=== PATIENT | female | born 1985 | race Caucasian/White ===

== ENCOUNTER → 2019-02-16 17:10 | Outpatient (CLI) | payer BC, SELFPAY ==
[2019-02-16 13:59] VITALS: BMI 41.2
[2019-02-16 20:37] LABS: Chlamydia Trachomatis by PCR Negative (Negative); Neisserai gonorrhoeae by PCR Negative (Negative); Probe Check PASS; Sample Adequacy Control PASS; Specimen Processing Control PASS
== END ==
PROVIDERS: Referring Provider Nurse Practitioner Women's Health; Visit Provider Nurse Practitioner Women's Health
DX: Z34.90 Encounter for supervision of normal pregnancy, unspecified, unspecified trimester (principal)
CPT/HCPCS: 87086; 87088; 87491; 87591

== ENCOUNTER → 2019-02-16 | Outpatient (CLI) | payer BC, SELFPAY ==
[2019-02-16 13:59] VITALS: BMI 41.2
== END | disposition home or self-care (01) ==
LOC: LABSPEC 17:09
PROVIDERS: Referring Provider Nurse Practitioner Women's Health; Visit Provider Nurse Practitioner Women's Health
DX: Z12.4 Encounter for screening for malignant neoplasm of cervix (principal)
CPT/HCPCS: 87624; 88175; G0145

== ENCOUNTER → 2019-02-25 | Outpatient (CLI) | payer BC, SELFPAY ==
[2019-02-16 13:59] VITALS: BMI 41.2
[2019-02-25 17:30] LABS: Absolute Lymphocyte Count 1.95 X10^3/ul (0.83-4.51); Absolute Neutrophil Count 9.2 X10^3/uL (2.0-7.7); Basophil# 0.02 X10^3/uL; Basophil% 0.2 % (0-1); Eosinophil# 0.11 X10^3/uL; Eosinophils% 0.9 % (0-5); Hematocrit 38.7 % (37-47); Hemoglobin 12.8 g/dl (12.0-15.0); Lymphocyte # 1.95 X10^3/ul (4.0); Lymphocyte % 16.1 % (19-41); Mean Corp Hgb Conc 33.1 g/gl (32-36); Mean Corpuscular Hgb 29.7 pg (27.0-32.0); Mean Corpuscular Volume 89.8 fL (81-99); Mean Platelet Vol. 11.6 fl (6.2-12.0); Monocyte# 0.75 X10^3/uL; Monocyte% 6.2 % (0-10); Neutrophil # 9.22 X10^3/uL (2.7-7.7); Neutrophil % 76.3 % (47-70); Platelet Count 263 K/mm3 (150-450); RBC Distribution Width CV 13.4 % (11.6-14.6); RBC Distribution Width SD 43.6 fl (35.1-43.9); Red Blood Count 4.31 M/mm3 (4.2-5.4); White Blood Count 12.1 K/mm3 (4.4-11.0)
[2019-02-25 17:32] LABS: POSITIVE COUNT NO; POSITIVE DIFFERENTIAL NO; POSITIVE MORPHOLOGY NO
[2019-02-25 17:57] LABS: Glucose Challenge Gest 1H 50g 172 mg/dL (70-140)
[2019-02-25 19:01] LABS: Rubella IgG 67.9 IU/mL
[2019-02-26 01:18] LABS: Rapid Plasmin Reagin (RPR) NONREACTIVE (NONREACTIVE)
[2019-02-26 09:13] LABS: HIV - WCH Non-Reactive (Nonreactive)
[2019-02-26 09:54] LABS: Hepatitis B Surface Antigen Non-Reactive (Nonreactive)
== END | disposition home or self-care (01) ==
LOC: PAVLAB 15:25 → LAB 15:29
PROVIDERS: Nurse Practitioner Women's Health; Referring Provider Obstetrics & Gynecology; Visit Provider Obstetrics & Gynecology
DX: O99.210 Obesity complicating pregnancy, unspecified trimester (principal); Z3A.00 Weeks of gestation of pregnancy not specified
CPT/HCPCS: 82950; 85025; 86592; 86703; 86762; 86850; 86900; 87340

== ENCOUNTER → 2019-03-26 | Outpatient (CLI) | payer BC, SELFPAY ==
[2019-03-19 14:21] VITALS: BMI 41.2
[2019-03-26 10:57] LABS: Glucose GTT-Gestation. Fasting 117 mg/dL (<105)
[2019-03-26 10:57] LABS: Glucose GTT-Gestational 1 Hr 237 mg/dL (<190)
[2019-03-26 11:49] LABS: Glucose GTT-Gestational 2 Hr 202 mg/dL (<165)
[2019-03-26 14:24] LABS: Glucose GTT-Gestational 3 Hr 100 L (<145)
== END | disposition home or self-care (01) ==
PROVIDERS: Referring Provider Nurse Practitioner Women's Health; Visit Provider Nurse Practitioner Women's Health
DX: O99.810 Abnormal glucose complicating pregnancy (principal); Z3A.00 Weeks of gestation of pregnancy not specified
CPT/HCPCS: 36415; 82951; 82952

== ENCOUNTER → 2019-04-22 | Outpatient (CLI) | payer BC, SELFPAY ==
[2019-04-22 13:35] VITALS: BMI 41.2
[2019-04-22 16:52] LABS: Protein, Urine (Random) 17.5 mg/dL (<11.9); Protein:Creat Ratio 158 mg/g CRE (0-200)
== END | disposition home or self-care (01) ==
LOC: LABSPEC 16:19
PROVIDERS: Referring Provider Obstetrics & Gynecology; Visit Provider Obstetrics & Gynecology
DX: O16.9 Unspecified maternal hypertension, unspecified trimester (principal); Z3A.00 Weeks of gestation of pregnancy not specified
CPT/HCPCS: 82570; 84156

== ENCOUNTER → 2019-04-28 | Outpatient (CLI) | payer BC, SELFPAY ==
[2019-04-22 13:35] VITALS: BMI 41.2
--- NOTE | 2019-04-28 14:12 | US_ITS ---
STUDY: SECOND AND THIRD TRIMESTER OBSTETRICAL ULTRASOUND REASON FOR EXAM: Female, 34 years old. Routine survey. LMP: Unknown. TECHNIQUE: Transabdominal and Transvaginal TECHNICAL QUALITY: Limited. Examination limited due to obesity. PRIOR ULTRASOUND: None. FINDINGS: There is a single intrauterine fetus. The fetus is in a variable presentation. There is demonstrated cardiac activity with a heart rate of 152 bpm. There is a normal amniotic fluid volume. The largest amniotic fluid pocket measures 3.1 cm. The placenta is fundal in location. There are Grade 0 placental changes. The cervix measures 4.5 cm in length. The adnexal regions are not visualized. BIOMETRY: BPD: 4.1 cm: 18 weeks, 3 days HC: 15.4 cm: 18 weeks, 3 days AC: 12.2 cm: 18 weeks, 0 days FL: 2.7 cm: 18 weeks, 1 days age by current US: 18 weeks, 2 days. BRENTON by current US: September 27, 2019. Estimated weight: 220 grams, +/- 32 grams ANATOMY: Cranium: Normal lateral ventricles. Normal choroid plexus. The cerebellum is non-visualized.. The cisterna magna is non-visualized. The face, nose and lips are not visualized. Chest: The four-chamber heart is non-visualized. Abdomen/Pelvis: Normal diaphragm. Normal stomach. Normal abdominal wall. The cord insertion is non-visualized. The cord vessels are non-visualized. Normal kidneys. Normal bladder. Spine: Normal cervical spine. Normal thoracic spine. Normal lumbar spine. Normal sacrum. Extremities: Normal bilateral upper extremities. Normal bilateral lower extremities. US/OB Anatomy Scan IMPRESSION: Single intrauterine gestation 18 weeks 2 days with estimated due date September 27, 2019. There is limited evaluation of anatomy. Electronically Signed: Pedro Luis Chandler MD at 17:11 EDT , Service support ,
== END | disposition home or self-care (01) ==
PROVIDERS: Referring Provider Obstetrics & Gynecology; Visit Provider Obstetrics & Gynecology
DX: Z36.89 Encounter for other specified antenatal screening (principal)
CPT/HCPCS: 76805; 76817

== ENCOUNTER → 2019-05-25 | Outpatient (CLI) | payer BC, SELFPAY ==
[2019-05-20 14:41] VITALS: BMI 41.2
--- NOTE | 2019-05-25 11:13 | US_ITS ---
STUDY: SECOND AND THIRD TRIMESTER OBSTETRICAL ULTRASOUND - LIMITED REASON FOR EXAM: Female, 34 years old growth LMP: 12/10/2018 PRIOR ULTRASOUND: 04/28/2019. TECHNIQUE: Transabdominal TECHNICAL QUALITY: Adequate. FINDINGS: There is a single intrauterine fetus. The fetus is in a breech presentation. There is demonstrated cardiac activity with a heart rate of 143 bpm. There is a normal amniotic fluid volume. The largest amniotic fluid pocket measures 5.3 cm. The placenta is fundal in location. There are Grade 0 placental changes. The cervix measures 3.2 cm in length. BIOMETRY: BPD: 4.7: 20 weeks, 2 days HC: 18.1: 20 weeks, 4 days AC: 15.0: 20 weeks, 2 days FL: 2.7: 18 weeks, 3 days Age by LMP: 23 weeks, 5 days. BRENTON by LMP: 09/16/2019. age by prior US: 22 weeks, 1 days. BRENTON by prior US: 09/27/2019. age by current US: 20 weeks, 0 days. BRENTON by current US: 10/12/2019. Estimated weight: 298 grams, +/- 44 grams, 2 percentile. Gender: US/OB Limited With Biometrics IMPRESSION: Single live fetus in a breech presentation. survey not performed on this exam. Placenta is grade 0 and is not low-lying. Cervix is closed. age by prior US: 22 weeks, 1 days. BRENTON by prior US: 09/27/2019. Estimated weight: 298 grams, +/- 44 grams, 2 percentile. Electronically Signed: Rey Cramer MD at 17:18 EDT , Service support ,
== END | disposition home or self-care (01) ==
LOC: US 11:12
PROVIDERS: Referring Provider Nurse Practitioner Women's Health; Visit Provider Nurse Practitioner Women's Health
DX: O24.419 Gestational diabetes mellitus in pregnancy, unspecified control (principal); Z3A.00 Weeks of gestation of pregnancy not specified
CPT/HCPCS: 76816

== ENCOUNTER 2019-05-27 15:00 | Outpatient (RCR) | payer BC, SELFPAY ==
[2019-05-20 14:41] VITALS: BMI 41.2
== END 2019-05-31 23:59 ==
LOC: DC 15:00
PROVIDERS: Visit Provider Obstetrics & Gynecology
DX: O24.419 Gestational diabetes mellitus in pregnancy, unspecified control (principal)
CPT/HCPCS: 97802; G0108

== ENCOUNTER 2019-06-03 16:59 | Outpatient (CLI) | payer BC, SELFPAY ==
[2019-05-20 14:41] VITALS: BMI 41.2
[2019-06-03 17:07] VITALS: BMI 41.9
[2019-06-03] MEDS: Magnesium Sulfate 4gm/100mL 6 GM/150 ML IV.SOLN. IV (17:13)
--- NOTE | 2019-06-03 17:22 | OB.TRI.NOTE ---
- Problem List (1) IUGR (intrauterine growth restriction) Status: Acute Comment: 2nd percentile on 05/25/19 298 g. previable at this time. (2) Gestational diabetes Status: Acute Qualifiers: Comment: noncompliant at last visit, hasn't been checking at home recently, previously controlled without meds. (3) History of gestational hypertension Status: Acute Comment: recomemnd baby ASA (4) History of premature rupture of membranes (PPROM) Status: Acute Comment: states leaking at 18 weeks, on bed rest w 1st preg (5) Rh negative state in antepartum period Status: Acute Comment: rhogam at 28 weeks and as indicated (6) Supervision of high risk in first trimester Status: Acute Comment: PRR BRENTON 09/16/19 boy PC [facility]; BF Joe (7) History of delivery, currently Status: Acute Comment: US Cervical length US q2wks till 26 wks; 26 wks US cervical length and growth; Progesterone inj declined due to cost delivered first baby at 30 weeks (8) Status: Acute Qualifiers: Comment: declines carrier; NIPT-low risk ; 23 wk US shows baby small for gestational age (9) Seasonal allergies Status: Chronic (10) Pre-eclampsia, severe, second trimester Status: Acute Comment: 06/03- transport to [facility] for management (11) Vagina bleeding Status: Acute History of Present Illness Date of Service: 06/03/19 Was patient seen by the physician?: Yes Reason For Visit: BLEEDING Date of Service: 06/03/19 Final BRENTON: 09/16/19 Gestational age: 25 Weeks and 0 Days History of Present Illness: 34-year-old G2, P1 at 25 weeks presents with acute vaginal bleeding and preeclampsia with severe features. Patient began bleeding this afternoon with dark red blood and presented immediately and was checked and noted to not be in labor or dilated and had approximately 30 to 40 cc of dark blood present vaginally. She has had normal blood pressures in the but her has been complicated by noncompliant gestational diabetes and should growth ultrasound last week that estimated weight at 298 g which is the 2nd percentile for gestational age at that time. She has declined progesterone injections this due to cost. They were recommended because of a history of 18-week PROM and 30-week delivery with her first child. She is a history of gestational hypertension with her first child was recommended for her to take a baby aspirin this . upon admission patient's blood pressures were severely elevated in the 190s over 90s and therefore she was started on IV labetalol and was given 20, 40 and 80 mg IV. She was given 300 mg of oral labetalol so after blood pressures were stabilized. A 6 g bolus of magnesium sulfate followed by 2 g an hour were started for seizure prophylaxis. Mom's Problem List Problem Status Onset Code IUGR (intrauterine growth restriction) Acute Pre-eclampsia, severe, second trimester Acute O14.12 Mom's Labs & Results 06/03/19 06/03/19 06/03/19 17:05 17:05 17:05 WBC 10.5 RBC 3.89 L Hgb 12.2 Hct 36.5 L MCV 93.8 MCH 31.4 MCHC 33.4 RDW Std Deviation 45.6 H RDW Coeff of Adriana 13.4 Plt Count 188 MPV 12.6 H PT Pending INR Pending APTT Pending Creatinine Pending Est GFR (MDRD) Af Amer Pending Est GFR (MDRD) Non-Af Pending Uric Acid Pending AST Pending ALT Pending Social History Smoking Status Light Smoker (<10/day) Allergies No Known Allergies Allergy (Verified 06/03/19 17:45) - Pertinent Past Medical History Medical History: Past Medical History (Last Reviewed 05/20/19 @ 14:40 by Kasey Mcgraw) Seasonal allergies (Chronic) Review of Systems Constitutional: Denies: Fever, Malaise Eyes: Denies: Blurred vision, Vision Change HEENT: Denies: Head Aches, Visual Changes Cardiovascular: Denies: Chest Pain, Palpitations Respiratory: Denies: Cough, Shortness of Breath, Wheezing Gastrointestinal: Reports: Nausea. Denies: Abdominal Pain, Diarrhea, Vomiting Genitourinary: Denies: Dysuria, Hematuria Gynecological: Reports: Vaginal bleeding Musculoskeletal: Denies: Joint Pain, Muscle pain Skin: Denies: Lesions, Rash Neurological: Denies: Blurred vision, Focal weakness, Headaches Psychiatric: Denies: Anxiety, Depression Endocrine: Denies: Heat/ Cold Intolerance Hematologic/ Lymphatic: Denies: Easy Bruising, Easy Bleeding Physical Exam General: Alert, Cooperative, No apparent distress HEENT: Atraumatic, Normocephalic. Negative for: Thyromegaly, Lymphadenopathy Cardiovascular: Regular rate Lungs: Normal air movement Abdomen: Soft, Non Tender, Gravid Neurological: Deep Tendon Reflexes 2+/4 and Symmetrical, Neuro grossly intact. Negative for: Clonus HOOKMAN: Normal external genitalia - dark red vaginal bleeding, approx 30-40 cc total lost, minimal acute bleeding. Negative for: Vulvar lesions Estimated gestational size: Small for gestational age Presentation: Breech Cervix Dilation (cm): 0 NST - FHR Rate Baby A Baseline: 150 Uterine Activity:: none Impression/Plan 34-year-old G2, P1 at 25 weeks with preeclampsia with severe features and suspected placental abruption Previable?discussed with parents her early gestational age and low estimated weight so recommend no [place] at this time, will transport for maternal stabilization and treatment discussed with MFM suspected abruption- bleeding stable at present, nl cbc fibrinogen pending. Preeclampsia with severe features?magnesium sulfate started and IV labetalol given for blood pressure control via hypertensive protocol. Oral labetalol given for maintenance. Gestational diabetes?patient has recently been noncompliant, follow blood sugars h/o PPROM with previous and delivery?most recent cervical length was 3.2 cm, patient declined progesterone injections due to cost History of gestational hypertension?recommended patient take baby aspirin daily, blood pressures normal in current prior to evaluation today. obesity Multi Select Codes - Visit Charges Office Visit/Consults: [id number] OV L4 Est
[2019-06-03 17:35] LABS: Hematocrit 36.5 % (37-47); Hemoglobin 12.2 g/dL (12.0-15.0); Mean Corp Hgb Conc 33.4 g/dL (32-36); Mean Corpuscular Hgb 31.4 pg (27.0-32.0); Mean Corpuscular Volume 93.8 fL (81-99); Mean Platelet Vol. 12.6 fl (6.2-12.0); Platelet Count 188 K/mm3 (150-450); RBC Distribution Width CV 13.4 % (11.6-14.6); RBC Distribution Width SD 45.6 fl (35.1-43.9); Red Blood Count 3.89 M/mm3 (4.2-5.4); White Blood Count 10.5 K/mm3 (4.4-11.0)
[2019-06-03 17:43] VITALS: BP 145/94; PULSE 78; RESP 20; O2SAT 97
[2019-06-03] MEDS: Magnesium Sulfate 20 GM/500 ML BAG IV (17:43)
[2019-06-03 17:47] LABS: Partial Thromboplast Time 33.4 Seconds (24.1-36.2)
[2019-06-03] MEDS: Labetalol 200 MG Tablet PO (18:01)
[2019-06-03 18:18] LABS: AST(SGOT) 15 U/L (15-37); Alanine Aminotransfer ALT/SGPT 16 U/L (13-56); Creatinine, Serum 0.73 mg/dL (0.55-1.02); EST Glomerular Filtration Rate 99 mL/min (>60); Est Glom Filt Rate - Afr Amer 120 mL/min (>60); Estimated Creatinine Clearance 111.61 ml/min; Uric Acid 6.1 mg/dL (2.6-6.0)
[2019-06-03 19:25] LABS: Bedside Glucose 124 mg/dL (70-110)
== END 2019-06-03 18:25 | disposition home or self-care (01) ==
LOC: WPOUT 17:01 → WP 17:04
PROVIDERS: Referring Provider Obstetrics & Gynecology; Visit Provider Obstetrics & Gynecology
DX: O14.12 Severe pre-eclampsia, second trimester (principal); O46.92 Antepartum hemorrhage, unspecified, second trimester; O36.5920 Maternal care for other known or suspected poor fetal growth, second trimester, not applicable or unspecified; O24.410 Gestational diabetes mellitus in pregnancy, diet controlled; Z91.19 Patient's noncompliance with other medical treatment and regimen; O99.332 Smoking (tobacco) complicating pregnancy, second trimester; F17.200 Nicotine dependence, unspecified, uncomplicated; O99.212 Obesity complicating pregnancy, second trimester; E66.9 Obesity, unspecified; Z3A.25 25 weeks gestation of pregnancy
CPT/HCPCS: 96365; 96366; 96375; 59050; 76815; 82565; 82962; 84450; 84460; 84550; 85027; 85610; 85730; 99218; G0378

== ENCOUNTER 2019-06-08 12:00 | Outpatient (RCR) | payer BC, SELFPAY ==
[2019-05-20 14:41] VITALS: BMI 41.2
== END 2019-07-01 23:59 ==
LOC: DC 12:00
PROVIDERS: Visit Provider Obstetrics & Gynecology
DX: O24.419 Gestational diabetes mellitus in pregnancy, unspecified control (principal)

== ENCOUNTER → 2022-05-02 | Outpatient (CLI) | payer BC, SELFPAY ==
[2022-05-02 17:26] LABS: Amphetamine Urine VISTA NEGATIVE (<1000 ng/mL); Barbiturate Urine VISTA NEGATIVE (< 200 ng/mL); Benzodiazepine Urine VISTA NEGATIVE (< 200 ng/mL); Cocaine Urine VISTA NEGATIVE (< 300 ng/mL); Ecstacy Urine VISTA NEGATIVE (< 500 ng/mL); Methadone Urine VISTA NEGATIVE (< 300 ng/mL); PCP Urine VISTA NEGATIVE (< 25 ng/mL); THC Urine VISTA NEGATIVE (< 50 ng/mL); Vista UDS pH Range 4
[2022-05-06 06:06] LABS: Chlamydia By Nucleic Acid AMP Negative (Negative)
[2022-05-08 08:49] LABS: Gonococcus By Nucleic Acid AMP Negative (Negative)
[2022-05-11 16:39] LABS: HPV APTIMA, High Risk Negative (Negative)
== END | disposition home or self-care (01) ==
PROVIDERS: PCP Internal Medicine; Visit Provider Obstetrics & Gynecology
DX: O09.90 Supervision of high risk pregnancy, unspecified, unspecified trimester (principal)
CPT/HCPCS: 80307; 87086; 87088; 87491; 87591; 87624; 88175; G0145

== ENCOUNTER → 2022-05-23 | Outpatient (CLI) | payer BC, SELFPAY ==
[2022-05-23 15:43] LABS: NATERA MAILED SPECIMEN
[2022-05-23 15:49] LABS: Absolute Lymphocyte Count 2.04 X10^3/uL (0.83-4.51); Absolute Neutrophil Count 9.2 X10^3/uL (2.0-7.7); Basophil# 0.07 X10^3/uL; Basophil% 0.6 % (0-1); Eosinophil# 0.25 X10^3/uL; Hemoglobin 12.6 g/dL (12.0-15.0); Lymphocyte # 2.04 X10^3/ul (0.83-4.51); Lymphocyte % 16.6 % (19-41); Mean Corp Hgb Conc 34.1 g/dL (32-36); Mean Corpuscular Hgb 31.6 pg (27.0-32.0); Mean Corpuscular Volume 92.7 fL (81-99); Mean Platelet Vol. 11.8 fl (6.2-12.0); Monocyte# 0.73 X10^3/uL; Monocyte% 5.9 % (0-10); NRBC Flagged by Analyzer 0 % (0-5); Neutrophil # 9.17 X10^3/uL (2.7-7.7); Neutrophil % 74.6 % (47-70); Platelet Count 267 K/mm3 (150-450); RBC Distribution Width CV 12.3 % (11.6-14.6); RBC Distribution Width SD 42.4 fl (35.1-43.9); Red Blood Count 3.99 M/mm3 (4.2-5.4); White Blood Count 12.3 K/mm3 (4.4-11.0)
[2022-05-23 17:06] LABS: ALB/GLOB Ratio 0.8 RATIO (0.9-2.4); AST(SGOT) 6 U/L (15-37); Alanine Aminotransfer ALT/SGPT 15 U/L (13-56); Albumin, Serum 3.3 g/dL (3.2-5.0); Alkaline Phosphatase 41 U/L (45-117); Anion Gap 8 (5-15); BUN 9 mg/dL (7-18); BUN/Creat Ratio 13.8 RATIO (10-20); Calcium,Total 8.9 mg/dL (8.5-10.1); Chloride 104 mmol/L (98-107); Creatinine, Serum 0.65 mg/dL (0.55-1.02); EST Glomerular Filtration Rate 110 mL/min (>60); Est Glom Filt Rate - Afr Amer 133 mL/min (>60); Globulin 4.4 g/dL (2.2-4.2); Glucose 181 mg/dL (74-106); Potassium 3.7 mmol/L (3.5-5.1); Protein, Total 7.7 g/dL (6.4-8.2); Sodium Level 136 mmol/L (136-145)
[2022-05-23 17:23] LABS: HIV - WCH Non-Reactive (Nonreactive); Hepatitis B Surface Antigen Non-Reactive (Nonreactive); Hepatitis C Antibody Non-Reactive (Nonreactive); Rubella IgG Reactive (Nonreactive); Syphilis Antibodies Non-reactive
[2022-05-23 21:53] LABS: Glucose Challenge Gest 1H 50g 188 mg/dL (70-140)
[2022-05-27 01:06] LABS: Dilute Prothrombin Time (dPT) 34.9 sec (0.0-47.6); Dilute Russell Viper Venom 35.7 sec (0.0-47.0); PTT-LA 34.6 sec (0.0-51.9); Thrombin Time 16.6 sec (0.0-23.0); dPT Confirm Ratio 1.03 Ratio (0.00-1.34)
[2022-05-27 08:58] LABS: Anti-Cardiolipin Ab, IgA, Qn 29 APL U/mL (0-11); Anti-Cardiolipin Ab, IgG, Qn < 9 GPL U/mL (0-14); Anti-Cardiolipin Ab, IgM, Qn < 9 MPL U/mL (0-12); Beta-2-Glycoprotein I IgA <9 (0-25); Beta-2-Glycoprotein I IgG <9 (0-20); Beta-2-Glycoprotein I IgM <9 (0-32); Interpretation Comment: (.)
== END | disposition home or self-care (01) ==
PROVIDERS: Obstetrics & Gynecology; PCP Internal Medicine; Referring Provider Obstetrics & Gynecology; Visit Provider Obstetrics & Gynecology
DX: O09.521 Supervision of elderly multigravida, first trimester (principal); Z31.430 Encounter of female for testing for genetic disease carrier status for procreative management; N96 Recurrent pregnancy loss; O10.919 Unspecified pre-existing hypertension complicating pregnancy, unspecified trimester
CPT/HCPCS: 36415; 80053; 82950; 85025; 86146; 86147; 86703; 86762; 86780; 86803; 86850; 86900; 86901; 87340; 93005

== ENCOUNTER 2022-05-27 18:39 | Emergency (ER) | payer BC, SELFPAY ==
[2022-05-27 18:41] VITALS: BP 159/96; PULSE 91; RESP 17; TEMP 36.9; O2SAT 99; BMI 36.6
[2022-05-27 20:08] LABS: Mucous, Urine 0 SEEN /hpf (<or=2+); Red Blood Cells-Urine 0 SEEN /hpf (0-5); White Blood Cells 0 SEEN /hpf (0-5)
[2022-05-27 20:11] LABS: Glucose, Dipstick Normal (Normal); Ketone-Dipstick Negative (Negative); Leukocyte Esterase-Dipstick Negative /ul (Negative); Nitrite-Dipstick Negative (Negative); Occult Blood-Urine 150 /ul (Negative); Protein-Dipstick Negative (Negative); Urine Bilirubin Dipstick Negative (Negative); Urine Clarity Clear (Clear); Urine Urobilinogen Normal (Normal)
[2022-05-27 20:16] LABS: Color, Urine Yellow (Yellow)
[2022-05-27 20:24] LABS: Bacteria 1+ /hpf (None Seen); Squamous Epithelial Cells - UA 0-5 SEEN /hpf (5-10)
--- NOTE | 2022-05-27 20:42 | EDS_ITS ---
HPI HPI - Female History of Present Illness Chief Complaint: Vag Bleeding Narrative Narrative: Patient is 12 weeks . She developed spotting which stopped. She has no abdominal pain or cramping. She has no urinary symptoms. She is Rh- and her last she had a miscarriage at 24 weeks gestation. No recent fevers chills or shortness of activity. No flank pain. No back pain or tearing sensation. No nausea or vomiting or diarrhea PFSH PFSH Medical History Asthma High blood pressure History of gestational diabetes Seasonal allergies Home Medications multivitamin no.47-iron fum 27 mg-folate no.1 1 mg-dha 300 mg capsule (PNV-DHA) 1 cap PO DAILY 04/25/22 [History Last Taken Unknown] nifedipine 30 mg tablet,extended release 24 hr (Procardia XL) 30 mg PO DAILY #30 tabs 05/02/22 [Rx Last Taken Unknown] aspirin 81 mg tablet 81 mg PO DAILY 05/27/22 [History Last Taken Unknown] Allergy/AdvReac Type Severity Reaction Status Date / Time No Known Allergies Allergy Verified 05/27/22 18:44 Family History Mother Hypertension Grandmother Breast cancer Grandfather Colon cancer Myocardial infarction Surgical History No history of previous surgery Social History adopted: No household members: spouse and children housing: house number of children: 1 current occupational status: employed current occupation: [employer] current occupational exposures/hazards: No pets and animals: Yes ([employer]) pets and animals: cat(s) history of recent travel: No sexually active: Yes Smoking Status: Light Smoker (<10/day) Tobacco: How many years used: 20 quit status: considering quitting counseling given: provider counseling alcohol intake: never substance use type: does not use well-balanced diet: daily or most days caffeine: Yes Type: carbonated beverages Number of servings: 1 eating out: rarely or never during the past year weight has: remained stable what type of physical activity do you participate in: none sergio/quaker: None seatbelt use: always do you feel safe at home: Yes additional social history: -Joe- Works at [employer] Patient works at [employer] ROS ROS ED ROS Narrative Past medical history: Reviewed Medications: Reviewed Social history: Noncontributory Review of systems: All systems negative except as indicated General: No fever Eyes: No visual changes ENT: No upper airway congestion, normal voice Neck: No neck pain Cardiovascular: No chest pain Respiratory: No shortness of breath or cough Gastrointestinal: No abdominal pain, nausea vomiting or diarrhea Genitourinary: As in HPI. Musculoskeletal: Denies myalgias no difficulty with ambulation Skin: No rash Neurological: No memory loss, confusion or any focal weakness Psych: No recent behavioral changes Hematologic: No easy bleeding or easy bruising EXAM Physical Exam Narrative Exam Narrative: Physical exam General: Well nourished, Well developed, No Acute Distress Head: Normocephalic, Atraumatic Eyes: Conjunctiva not pale ENT: Moist mucous membranes Neck: Supple, Nontender, No lymphadenopathy Cardiovascular: Regular rate, Regular rhythm Respiratory: No distress, CTA bilaterally Abdomen: Soft, Nontender, Nondistended : Deferred Back: Nontender, Normal Inspection. Negative for: CVA tenderness Extremities: Nontender, No edema Skin: Normal color, No rash Neurological: Alert, Normal Strength, Normal Sensation Psychological: Normal affect Const Vital Signs: 05/27/22 18:41 05/27/22 21:02 Temperature 98.4 F Temperature Source Temporal Pulse Rate 91 85 Respiratory Rate 17 16 Blood Pressure 159/96 H 146/97 H Blood Pressure Mean 117 113 Pulse Ox 99 100 Oxygen Delivery Method Room Air Room Air MDM MDM MDM Narrative Medical decision making narrative: A bedside ultrasound was done by me, heart rate was about 150 on the M- mode. Normal activity was seen. RhoGAM was ordered. Urinalysis is unremarkable. A quant hCG was done its about 85,000. I talked to Dr. Allen who is on for Dr. Ernesto Petersen, patient will be seen outpatient. Lab Data Labs: Laboratory Results - last 24 hr 05/27/22 05/27/22 05/27/22 19:51 21:10 21:10 HCG, Quant [id number] H Urine Color Yellow Urine Clarity Clear Urine pH 6.0 Ur Specific [place] 1.010 Urine Protein Negative Urine Glucose (UA) Normal Urine Ketones Negative Urine Occult Blood 150 H Urine Nitrite Negative Urine Bilirubin Negative Urine Urobilinogen Normal Ur Leukocyte Esterase Negative Urine RBC 0 SEEN Urine WBC 0 SEEN Ur Squamous Epith Cells 0-5 SEEN Urine Bacteria 1+ Urine Mucus 0 SEEN Blood Type A NEGATIVE Antibody Screen NEGATIVE Discharge Plan Triage Chief Complaint: Vag Bleeding ED Provider: Gus Alexis Dx/Rx/DC Orders Clinical Impression: Threatened miscarriage, Rh incompatibility Prescriptions: No Action PNV-DHA 27 mg iron-1 mg -300 mg capsule 1 cap PO DAILY nifedipine [Procardia XL] 30 mg tablet extended release 24hr 30 mg PO DAILY Qty: 30 4RF aspirin 81 mg Tablet 81 mg PO DAILY Primary Care Provider: Abigail Roth Referrals: Chanel Reed MD [Med Staff - Active Staff] - Abigail Roth MD [Primary Care Provider] - 3-5 Days Activity Restrictions/Additional Instructions: At this time there is no signs or symptoms of miscarriage, however this is 1 point in time, if she started bleeding again return to the ED, otherwise avoid any kind of heavy activity. No sex until cleared by [facility] PICKLER Disposition Disposition: Home, Self Care
[2022-05-27 21:02] VITALS: BP 146/97; PULSE 85; RESP 16; O2SAT 100
[2022-05-27 22:39] VITALS: BP 137/86; PULSE 77; RESP 16; O2SAT 99
[2022-05-27 23:14] VITALS: BP 147/89; PULSE 89; RESP 16; O2SAT 98
== END 2022-05-27 23:16 | disposition home or self-care (01) ==
PROVIDERS: Emergency Provider Emergency Medicine; PCP Obstetrics & Gynecology; Visit Provider Emergency Medicine
DX: O20.0 Threatened abortion (principal); O09.511 Supervision of elderly primigravida, first trimester; F17.200 Nicotine dependence, unspecified, uncomplicated; O26.851 Spotting complicating pregnancy, first trimester; O99.511 Diseases of the respiratory system complicating pregnancy, first trimester; J45.909 Unspecified asthma, uncomplicated; Z79.82 Long term (current) use of aspirin; O99.331 Smoking (tobacco) complicating pregnancy, first trimester; Z3A.12 12 weeks gestation of pregnancy; O26.891 Other specified pregnancy related conditions, first trimester
CPT/HCPCS: 81001; 84702; 86850; 86900; 86901; 90384; 99282; J2790

== ENCOUNTER → 2022-09-18 | Outpatient (CLI) | payer BC, SELFPAY ==
[2022-09-18 14:22] LABS: Absolute Lymphocyte Count 1.84 X10^3/uL (0.83-4.51); Absolute Neutrophil Count 9.2 X10^3/uL (2.0-7.7); Basophil# 0.05 X10^3/uL; Basophil% 0.4 % (0-1); Eosinophil# 0.26 X10^3/uL; Eosinophils% 2.2 % (0-5); Hematocrit 35.2 % (37-47); Hemoglobin 11.5 g/dL (12.0-15.0); Lymphocyte # 1.84 X10^3/ul (0.83-4.51); Lymphocyte % 15.2 % (19-41); Mean Corp Hgb Conc 32.7 g/dL (32-36); Mean Corpuscular Hgb 30.1 pg (27.0-32.0); Mean Corpuscular Volume 92.1 fL (81-99); Monocyte# 0.63 X10^3/uL; Monocyte% 5.2 % (0-10); NRBC Flagged by Analyzer 0 % (0-5); Neutrophil # 9.23 X10^3/uL (2.7-7.7); Neutrophil % 76.4 % (47-70); Platelet Count 272 K/mm3 (150-450); RBC Distribution Width CV 12.5 % (11.6-14.6); RBC Distribution Width SD 41.2 fl (35.1-43.9); Red Blood Count 3.82 M/mm3 (4.2-5.4); White Blood Count 12.1 K/mm3 (4.4-11.0)
[2022-09-18 15:20] LABS: HIV - WCH Non-Reactive (Nonreactive); Syphilis Antibodies Non-reactive
== END | disposition home or self-care (01) ==
LOC: LAB 13:49
PROVIDERS: Referring Provider Obstetrics & Gynecology; Visit Provider Obstetrics & Gynecology
DX: O26.899 Other specified pregnancy related conditions, unspecified trimester (principal); Z67.91 Unspecified blood type, Rh negative
CPT/HCPCS: 36415; 85025; 86703; 86780; 86900; 86901

== ENCOUNTER → 2022-10-10 | Outpatient (CLI) | payer BC, SELFPAY ==
[2022-10-10 16:45] LABS: Absolute Lymphocyte Count 1.82 X10^3/uL (0.83-4.51); Basophil# 0.05 X10^3/uL; Basophil% 0.5 % (0-1); Eosinophil# 0.21 X10^3/uL; Eosinophils% 1.9 % (0-5); Hematocrit 35.1 % (37-47); Hemoglobin 11.4 g/dL (12.0-15.0); Lymphocyte # 1.82 X10^3/ul (0.83-4.51); Lymphocyte % 16.8 % (19-41); Mean Corp Hgb Conc 32.5 g/dL (32-36); Mean Corpuscular Hgb 30.2 pg (27.0-32.0); Mean Corpuscular Volume 92.9 fL (81-99); Mean Platelet Vol. 11.5 fl (6.2-12.0); Monocyte# 0.68 X10^3/uL; Monocyte% 6.3 % (0-10); NRBC Flagged by Analyzer 0 % (0-5); Neutrophil # 8.01 X10^3/uL (2.7-7.7); Neutrophil % 74.1 % (47-70); Platelet Count 257 K/mm3 (150-450); RBC Distribution Width SD 43.8 fl (35.1-43.9); Red Blood Count 3.78 M/mm3 (4.2-5.4); White Blood Count 10.8 K/mm3 (4.4-11.0)
[2022-10-10 17:03] LABS: Protein, Urine (Random) 12.3 mg/dL (<11.9); Protein:Creat Ratio 142 mg/g CRE (0-200)
[2022-10-10 17:14] LABS: ALB/GLOB Ratio 0.6 RATIO (0.9-2.4); AST(SGOT) 5 U/L (15-37); Alanine Aminotransfer ALT/SGPT 11 U/L (13-56); Albumin, Serum 2.7 g/dL (3.2-5.0); Alkaline Phosphatase 52 U/L (45-117); Anion Gap 8 (5-15); BUN 13 mg/dL (7-18); BUN/Creat Ratio 20.4 RATIO (10-20); Calcium,Total 9.1 mg/dL (8.5-10.1); Chloride 104 mmol/L (98-107); Creatinine, Serum 0.64 mg/dL (0.55-1.02); EST Glomerular Filtration Rate 112 mL/min (>60); Est Glom Filt Rate - Afr Amer 136 mL/min (>60); Globulin 4.3 g/dL (2.2-4.2); Glucose 76 mg/dL (74-106); LDH 116 U/L (84-246); Potassium 4.1 mmol/L (3.5-5.1); Sodium Level 138 mmol/L (136-145); Uric Acid 4.9 mg/dL (2.6-6.0)
== END | disposition home or self-care (01) ==
LOC: LABSPEC 15:26
PROVIDERS: Visit Provider Nurse Practitioner
DX: O10.013 Pre-existing essential hypertension complicating pregnancy, third trimester (principal)
CPT/HCPCS: 36415; 80053; 82570; 83615; 84156; 84550; 85025

== ENCOUNTER 2022-10-14 15:15 | Outpatient (CLI) | payer BC, SELFPAY ==
--- NOTE | 2022-10-14 15:23 | US_ITS ---
STUDY: OBSTETRICAL ULTRASOUND - BIOPHYSICAL PROFILE REASON FOR EXAM: Female, 37 years old deceleration in office -- please do on OB unit. LMP: 02/20/2022 PRIOR ULTRASOUND: None. TECHNIQUE: Transabdominal TECHNICAL QUALITY: Adequate. FINDINGS: There is a single intrauterine fetus. The fetus is in a transverse lie with the head on the maternal right side. There is demonstrated cardiac activity with a heart rate of 133 bpm. There is a normal amniotic fluid volume. The largest amniotic fluid pocket measures 4.9 cm. The amniotic fluid index (ARMAND) is 15.0 cm. The placenta is anterior in location and is not low lying. There are Grade 3 placental changes. BIOPHYSICAL PROFILE: Breathing Movements (FBM): 2 Gross Body Movements (GBM): 2 Tone (FT): 2 Amniotic Fluid Volume (AFV): 2 TOTAL SCORE: 8 / 8 US/Biophysical Prof W/O Non Stres IMPRESSION: Normal biophysical profile of 04/08. Electronically Signed: Lake Thompson MD at 20:36 EST ,
[2022-10-14 15:28] VITALS: TEMP 36.8
[2022-10-14 15:31] VITALS: BMI 40.6
[2022-10-14] MEDS: 0.9% Saline Lock 10 ML Syringe IV (15:48)
[2022-10-14 15:49] VITALS: BP 138/82; PULSE 81
[2022-10-14 15:50] VITALS: PULSE 81; O2SAT 98
[2022-10-14 16:01] LABS: Hematocrit 36.2 % (37-47); Hemoglobin 11.9 g/dL (12.0-15.0); Mean Corp Hgb Conc 32.9 g/dL (32-36); Mean Corpuscular Hgb 30.2 pg (27.0-32.0); Mean Corpuscular Volume 91.9 fL (81-99); Mean Platelet Vol. 11.5 fl (6.2-12.0); Platelet Count 274 K/mm3 (150-450); Red Blood Count 3.94 M/mm3 (4.2-5.4); White Blood Count 12.5 K/mm3 (4.4-11.0)
[2022-10-14] MEDS: Betamethasone/Betamethasone 30 MG/5 ML Vial 12 MG IM (16:21)
--- NOTE | 2022-10-14 16:51 | HP.PCM.OB_ITS ---
HPI - General HPI Narrative ABRAHAM CEDEÑO, is a 37 F who presents with variable decelerations in the office. She was on the monitor and had a 60 second decel down into the 60s. She denies any vaginal bleeding or loss of fluid admits good movement and denies any regular contractions. Maternal Data Information [place] Calculator Estimated Delivery Date Method Current WG Current Estimate 12/04/22 Ultrasound #1 32w 6d Other Estimates 11/27/22 LMP (Certain) 33w 6d PFSH PFSH Medical History Asthma High blood pressure History of gestational diabetes Seasonal allergies Home Medications multivitamin no.47-iron fum 27 mg-folate no.1 1 mg-dha 300 mg capsule (PNV-DHA) 1 cap PO DAILY 04/25/22 [History Last Taken 10/14/22 06:00] aspirin 81 mg tablet 81 mg PO DAILY 05/27/22 [History Last Taken 10/14/22 06:00] insulin NPH isoph U-100 human 100 unit/mL subcutaneous suspension 22 unit subcut 1XD gdm 09/18/22 [History Last Taken 10/13/22 21:00] insulin lispro 100 unit/mL subcutaneous pen (Humalog KwikPen (U-100) Insulin) 6 unit subcut TID gdm 09/18/22 [History Last Taken Unknown] insulin NPH isoph U-100 human 100 unit/mL subcutaneous suspension 18 unit subcut 1XD 10/14/22 [History Last Taken Unknown] labetalol 200 mg tablet 200 mg PO BID bp 10/14/22 [History Last Taken 10/14/22 06:00] nifedipine 60 mg tablet,extended release 24 hr (Procardia XL) 60 mg PO DAILY bp 10/14/22 [History Last Taken 10/13/22 22:30 1 tab] Allergy/AdvReac Type Severity Reaction Status Date / Time No Known Allergies Allergy Verified 10/14/22 15:32 Family History Mother Hypertension Grandmother Breast cancer Grandfather Colon cancer Myocardial infarction Surgical History No history of previous surgery Social History adopted: No household members: spouse and children housing: house number of children: 1 current occupational status: employed current occupation: [employer] current occupational exposures/hazards: No pets and animals: Yes ([employer]ING [employer]) pets and animals: cat(s) history of recent travel: No sexually active: Yes Smoking Status: Light Smoker (<10/day) Tobacco: How many years used: 20 quit status: considering quitting counseling given: provider counseling alcohol intake: never substance use type: does not use well-balanced diet: daily or most days caffeine: Yes Type: carbonated beverages Number of servings: 1 eating out: rarely or never during the past year weight has: remained stable what type of physical activity do you participate in: none sergio/caodaism: None seatbelt use: always do you feel safe at home: Yes additional social history: -Joe- Works at [employer] Patient works at [employer] History 3 Elective abortions Hx Para 1 Spontaneous abortions Hx # Term Pregnancies Ectopic pregnancies Hx # Pregnancies 2 Multiple births # of living children 1 Past Pregnancies Del. Date Name GA/Weeks Outcome Route Bth [facility] 30 live - 2lbs 7oz Female none [place] Joe 06/06/19 Mohinder 25 [facility] Joe Delivery Date: 10/28/16 Last Updated by: Norma Hernández Low amniotic fluid. Started having blood pressure issues at end of . Visit Details OB Flowsheet Initial Weight: Not Recorded Date -?-?-?-?-?-?-?-?-?-?-?-?- EGA Weight BP Urine Prot -?-?-?-?-?-?-?-?-?-?-?-?- Glucose FHR FuHt Pres Dilation -?-?-?-?-?-?-?-?-?-?-?-?- Effaced St Visit Note 05/02/22 -?-?-?-?-?-?-?-?-?-?-?-?- 9w 1d 244 lb 8 oz 154/100 -?-?-?-?-?-?-?-?-?-?-?-?- -?-?-?-?-?-?-?-?-?-?-?-?- JV- CRL not cons istent with LMP. brenton 12/04/21. see problem list 05/17/22 -?-?-?-?-?-?-?-?-?-?-?-?- 11w 2d 217 lb 136/89 Negative -?-?-?-?-?-?-?-?-?-?-?-?- Negative 160 -?-?-?-?-?-?-?-?-?-?-?-?- SM- doing well n o complaints, blood draw next week 05/29/22 -?-?-?-?-?-?-?-?-?-?-?-?- 13w 0d 243 lb 6 oz 139/90 Nega tive -?-?-?-?-?-?-?-?-?-?-?-?- Negative 168 -?-?-?-?-?-?-?-?-?-?-?-?- JV- pt now diabe tic and hypertensive along with her history of loss and ptl, recommend comanagement with MFM. consultation order placed. continue procardia 30xl. was in ER for bleeding and was given rhogam. Unsure if diagnosis of RH incompatability is true at this time. last delivery was at 25 weeks and was a result of abruption and severe pre-e. 06/11/22 -?-?-?-?-?-?-?-?-?-?-?-?- 14w 6d 243 lb 2 oz 140/98 Trac e -?-?-?-?-?-?-?-?-?-?-?-?- 1000 g/dL 160 20 -?-?-?-?-?-?-?-?-?-?-?-?- LC- awaiting end o and MFM consult, milly. procardia increased to 60mg. LC- no further VB, no crampi ng. awaiting endo and MFM consult, milly is under prior authorization. increased BP in office, procardia increased to 60mg qday. lovenox ordered today to start SQ. co-managed with Dr. Marcus 07/10/22 -?-?-?-?-?-?-?-?-?-?-?-?- 19w 0d 247 lb 8 oz 150/84 Nega tive -?-?-?-?-?-?-?-?-?-?-?-?- Negative 155 -?-?-?-?-?-?-?-?-?-?-?-?- JV- bp's still e levated today despite 60 xl procardia. adding 200 labetalol bid as well. pt does not have her bp readings nor does she have her glucose log. re-consulting MFM for co-care to help reinforce the importance of compliance as well and guide us with the high doses of bp meds that are needed. Pt to call us when she gets home with her glucose and bp numbers. message left for Roxana Velez to help start doing home bp monitoring. 07/24/22 -?-?-?-?-?-?-?-?-?-?-?-?- 21w 0d 244 lb 4 oz 139/86 -?-?-?-?-?-?-?-?-?-?-?-?- 150 -?-?-?-?-?-?-?-?-?-?-?-?- JV- bp's better controlled and she is now hooked up with MFM to better monitor glucose levels. had scan on 07/23 and was overall normal. has follow up scan scheduled for echo. q month growths and twice weekly testing after 32 weeks. 09/03/22 -?-?-?-?-?-?-?-?-?-?-?-?- 26w 6d 250 lb 4 oz 130/82 Nega tive -?-?-?-?-?-?-?-?-?-?-?-?- Negative 147 25 -?-?--?-?-?-?-?-?-?-?-?-?- JV- no lof, vagi nal bleeding, or dec fm. normal echo, has follow ups with MFM scheduled. planning for 38 week delivery. 09/18/22 -?-?-?-?-?-?-?-?-?-?-?-?- 29w 0d 254 lb 2 oz 131/80 Nega tive -?-?-?-?-?-?-?-?-?-?-?-?- Negative 138 28 Cephalic -?-?-?-?-?-?-?-?-?-?-?-?- JV- glucose leve ls are within normal limits with Dr. Benitez. bpp's have been 04/08. AC 8t% and getting weekly dopplers along with twice weekly nsts. growth scan is 09/26/22 10/01/22 -?-?-?-?-?-?-?-?-?-?-?-?- 30w 6d 254 lb 135/86 -?-?-?-?-?-?-?-?-?-?-?-?- 147 -?-?-?-?-?-?-?-?-?-?-?-?- JV- no lof, vag inal bleeding, or dec fm. most recent scan shows IUGR <1st% of the HC and AC. bpp yesterday 04/0810/07/22 -?-?-?-?-?-?-?-?-?-?-?-?- 31w 5d 260 lb 139/82 Negative -?-?-?-?-?-?-?-?-?-?-?-?- Negative 140 32 -?-?-?-?-?-?-?-?-?-?-?-?- SM_ no vb lof go od fm no regular ctx reviewed PL and updated 10/14/22 -?-?-?-?-?-?-?-?-?-?-?-?- 32w 5d 259 lb 8 oz 259 lb 8 oz 121/78 Negative -?-?-?-?-?-?-?-?-?-?-?-?- Negative 140 -?-?-?-?-?-?-?-?-?-?-?-?- SM- no vb lof go od fm on nst had variable on nst so sent to l and d for monitoring 10/14/22 -?-?-?-?-?-?-?-?-?-?-?-?- 32w 5d 259 lb 4.218 oz 138/ 82 137/67 146/78 130/77 142/90 -?-?-?-?-?-?-?-?-?-?-?-?- -?-?-?-?-?-?-?-?-?-?-?-?- NST FHR Rate Baby A Baseline: 140 Variability:: Moderate Accelerations:: 10 x 10 Decelerations:: None NST Reactive:: Yes FHR Category:: Category II (isolated decels mild 10-20 sec) Uterine Activity:: irregular ROS Constitutional Constitutional: Reports systems reviewed and no addt'l complaints, except as documented Eyes Eyes: Denies change in vision ENT HEENT: Reports systems reviewed and no addt'l complaints, except as documented; Denies headache(s) Cardiovascular Cardiovascular: Reports systems reviewed and no addt'l complaints, except as documented; Denies chest pain or dyspnea Respiratory/Chest Respiratory/Chest: Reports systems reviewed and no addt'l complaints, except as documented Gastrointestinal Gastrointestinal: Reports systems reviewed and no addt'l complaints, except as documented; Denies abdominal pain Genitourinary Genitourinary: Reports systems reviewed and no addt'l complaints, except as documented, contractions Details: present (irregular) and movement Details: present; Denies dysuria or genital lesions Musculoskeletal Musculoskeletal: Reports systems reviewed and no addt'l complaints, except as documented Neurologic Neurologic: Reports systems reviewed and no addt'l complaints, except as documented Endocrine Endocrinology: Reports systems reviewed and no addt'l complaints, except as documented Vital Signs Vital Signs Vital Signs: 10/14/22 15:28 10/14/22 15:28 10/14/22 15:49 Temperature 98.2 F Temperature Source Temporal Pulse Rate Blood Pressure 138/82 H BP Systolic 138 BP Diastolic 82 Pulse Ox 10/14/22 15:49 10/14/22 15:50 10/14/22 15:50 Temperature Temperature Source Pulse Rate 81 81 Blood Pressure BP Systolic BP Diastolic Pulse Ox 98 Weight Weight: 259 lb 4.218 oz Body Mass Index (BMI) 40.6 Physical Exam Const alert, oriented x3, no apparent distress and healthy appearing HEENT normocephalic and moist oral mucous membranes Head and Scalp: atraumatic Neck full ROM, no lymphadenopathy, supple and thyroid normal General: trachea midline Lymph Lymphatic: no lymphadenopathy noted Chest inspection of chest normal Resp normal respiratory effort Cardio regular rate GI normal to inspection, nondistended, normoactive bowel sounds, soft to palpation and non-tender Inspection: gravid external exam normal Manual OB Exam: estimated gestational size appropriate, presentation cephalic, dilated, effaced and station Extremity normal to inspection General Extremity: Negative for edema Skin no rashes or lesions noted Neuro no focal motor deficits and deep tendon reflexes 2+ bilaterally Motor Exam: strength 5/5 throughout and clonus absent Psych mental status grossly normal Labs Labs Labs: Blood Type A NEGATIVE Antibody Screen NEGATIVE Hct 36.2 % (37-47) L Hgb 11.9 g/dL (12.0-15.0) L Pap Smear Negative Obstetrics US Syphilis Total Ab Non-reactive Rubella IgG Antibody Reactive (Nonreactive) Hep Bs Antigen Non-Reactive (Nonreactive) Chlamydia DNA ([place]) Negative (Negative) Neisseria gonorrhoeae DNA ([place]) Negative (Negative) HIV 1&2 Antibody Non-Reactive (Nonreactive) Glucose 1 Hr 50 gm 188 mg/dL (70-140) H Miscellaneous Test Assessment & Plan (1) IUGR (intrauterine growth restriction): COMMENT: plan deliver at 37. 24%ile and 8%ile AC. 2x weekly testing with weekly dopplers. mfm once and bwc once a week. (2) Pregestational diabetes mellitus, modified White class B: COMMENT: on insulin. sees endocrine. 2x weekly testing- once weekly with MFM and weekly with BWC. (3) Two vessel umbilical cord: (4) : QUALIFIERS: Weeks of gestation: 32 weeks Qualified Code(s): Z3A.32 - 32 weeks gestation of COMMENT: NIPT low risk, Carrier testing neg. wants tubal if section (5) Supervision of high risk , antepartum: COMMENT: PRR , BR[place] 11/27/22, girl Ángela Mohinder Coulter(stillborn), Joe (6) History of stillbirth in patient in second trimester, antepartum: COMMENT: Mohinder 25weeks 2019. APL panel ordered. (7) Rh negative, antepartum: COMMENT: Rhogam 28weeks, Rhogam given in ER on 05/29/22 (8) Obesity affecting : COMMENT: 1 TM GCT. (9) History of labor: COMMENT: US Cervical length q2w 16-24w; Progesterone inj 16-36wk-PT is not doing [place] injections delivered first baby at 30 weeks, 2nd baby at 25 (alive at and due to airway compromise) (10) Chronic hypertension affecting : COMMENT: baseline labs. Procardia 60 xl, labetalol 200 bid EKG. (11) Asthma: COMMENT: viral induced, does not have an inhaler (12) Variable heart rate decelerations, antepartum: COMMENT: admit STO and give celestone. Charges/Coding Visit Charges Inpatient E&M: 19807 Init Hosp L3
[2022-10-14] MEDS: Insulin Lispro 100 UNIT/ML INSULN.PEN 7 UNIT SC (18:20)
[2022-10-14 18:46] LABS: Bedside Glucose 77 mg/dL (74-106)
[2022-10-14 20:03] VITALS: BP 137/67; PULSE 83; TEMP 36.7
[2022-10-14 20:04] VITALS: PULSE 79; O2SAT 97
[2022-10-14 21:51] LABS: Bedside Glucose 120 mg/dL (74-106)
[2022-10-14] MEDS: Insulin NPH Human 100 UNITS/ML PEN 24 UNITS SC (22:37)
[2022-10-14 22:39] VITALS: BP 146/78; PULSE 81
[2022-10-14] MEDS: Labetalol 200 MG Tablet PO (22:39)
[2022-10-14] MEDS: NIFEdipine 60 MG Tablet PO (22:43)
[2022-10-15 05:07] VITALS: BP 130/77; PULSE 72
--- NOTE | 2022-10-15 05:53 | US_ITS ---
STUDY: OBSTETRICAL ULTRASOUND - BIOPHYSICAL PROFILE REASON FOR EXAM: Female, 37 years old well being LMP: 02/20/2022. PRIOR ULTRASOUND: Comparison is made with prior examination of 10/14/2022. TECHNIQUE: Transabdominal TECHNICAL QUALITY: Adequate. FINDINGS: There is a single intrauterine fetus. The fetus is in a breech presentation. There is demonstrated cardiac activity with a heart rate of 144 bpm. There is a normal amniotic fluid volume. The largest amniotic fluid pocket measures 4.3 cm. The amniotic fluid index (ARMAND) is 11.1 cm. The placenta is anterior in location and is not low lying. There are Grade 3 placental changes. Age by LMP: 32 weeks, 6 days. BR[place] by LMP: 12/04/2022. BIOPHYSICAL PROFILE: Breathing Movements (FBM): 2 Gross Body Movements (GBM): 2 Tone (FT): 2 Amniotic Fluid Volume (AFV): 2 TOTAL SCORE: 8 / 8 US/Biophysical Prof W/O Non Stres IMPRESSION: Normal biophysical profile of 04/08. Electronically Signed: Marcelo Reyes MD at 9:24 EST ,
[2022-10-15] MEDS: Lactated Ringers 1,000 ML 999 ML IV (06:00)
[2022-10-15] MEDS: 0.9% Saline Lock 10 ML Syringe IV (06:32)
[2022-10-15 07:33] VITALS: BP 142/90; PULSE 95; TEMP 36.7; O2SAT 99
[2022-10-15] MEDS: Insulin NPH Human 100 UNITS/ML PEN 20 UNITS SC (07:50)
[2022-10-15] MEDS: Insulin Lispro 100 UNIT/ML INSULN.PEN 7 UNIT SC (07:51)
--- NOTE | 2022-10-15 08:01 | PCM.PN.OB ---
Subjective Subjective pt appears unhappy, does not make eye contact during exam, however not inconsistent with her baseline disposition. She states that her tailbone hurts from laying in bed x 15 hours. She denies pain or cramping. The plan for today as well as the reason for being on the monitor was explained. She seems to be fixed on her tailbone pain and allergies. Objective Data Objective Data Vital Signs: Vital Signs Temp Pulse BP Pulse Ox 98.1 F 95 142/90 H 97 10/14/22 20:03 10/15/22 07:33 10/15/22 07:33 10/14/22 20:04 Weight: 259 lb 4.218 oz Body Mass Index (BMI) 40.6 Intake & Output: Intake and Output for Last 24 Hours 10/13/22 10/14/22 10/15/22 23:59 23:59 23:59 Intake Total 1000 / 1000 Balance 1000 / 1000 Lab / Micro Data Result Diagrams: 10/14/22 15:40 Labs: Laboratory Results - last 24 hr 10/14/22 15:40: WBC 12.5 H, RBC 3.94 L, Hgb 11.9 L, Hct 36.2 L, MCV 91.9, MCH 30.2, MCHC 32.9, RDW Std Deviation 43.0, RDW Coeff of Adriana 13.0, Plt Count 274, MPV 11.5 10/14/22 15:40: Blood Type A NEGATIVE, Antibody Screen Not Reportable 10/14/22 15:40: Antibody Screen NEGATIVE 10/14/22 18:19: POC Glucose 77 10/14/22 21:32: POC Glucose 120 H Radiography Diagnostic Testing: Radiology Impression Biophysical Profile Ultrasound 10/14/22 15:23 IMPRESSION: Normal biophysical profile of 8. Electronically Signed: Lake Thompson MD at 20:36 EST , ROS Constitutional Constitutional: Denies change in weight, fatigue, fever(s), headache(s), poor appetite or weakness Eyes Eyes: Denies blurry vision, change in vision, seeing flashes or spots in vision ENT HEENT: Denies dizziness, headache(s), loss taste/smell or sore throat Cardiovascular Cardiovascular: Denies chest pain, dizziness, dyspnea, irregular heart rhythm, leg edema, palpitations, rapid heart rate or vomiting Respiratory/Chest Respiratory/Chest: Denies chest tightness, cough, dyspnea or breast pain Gastrointestinal Gastrointestinal: Denies abdominal pain, anorexia, constipation, cramping, diarrhea, hemorrhoids, vomiting or weight changes Genitourinary Genitourinary: Denies dysuria, flank pain, genital lesions, genital pain, urinary frequency or urinary urgency Musculoskeletal Musculoskeletal: Denies back pain, difficulty walking, joint pain, limited range of motion, muscle cramps or numbness Integumentary Integumentary: Denies lesions or unusual bruising Neurologic Neurologic: Denies abnormal movements, abnormal speech, dizziness, numbness, seizure-like activity or syncope Psychiatric Psychiatric: Denies anxiety, behavioral changes, change in appetite, change in libido, cognitive impairment, confusion, depression, difficulty concentrating, hallucinations or suicidal thoughts Endocrine Endocrinology: Denies excessive sweating, polydipsia or polyuria Allergic/Immunologic Allergic/Immunologic: Reports seasonal rhinorrhea; Denies itchy eyes, lip swelling, throat swelling, tongue swelling, eczemia, wheezing or asthma Physical Exam Const alert, oriented x3, no apparent distress and healthy appearing General Appearance: cooperative; Negative for anxious HEENT normocephalic Face and Sinus: normal facial exam Eyes EOMs intact bilaterally and no scleral icterus General Eye: normal appearance of both eyes Neck full ROM and supple Lymph Lymphatic: no lymphadenopathy noted Chest Chest: abnormal inspection of the chest Resp normal respiratory effort Effort and Inspection: able to speak in complete sentences Cardio regular rate GI soft to palpation and non-tender Inspection: gravid Palpation: soft; Negative for tender Back/Spine no CVA tenderness Extremity normal to inspection, full ROM and no clubbing, cyanosis or edema General Extremity: Negative for calf tenderness or edema Skin Lesions: no lesions Rashes: no rashes Psych mental status grossly normal NST FHR Rate Baby A Baseline: 130 Variability:: Moderate Accelerations:: 10 x 10 Decelerations:: Prolonged (first decel was in office yesterday, 2nd was around 11pm, 3rd at 5am, and most recent at 6:48 (more subtle) down to 110's) NST Reactive:: Yes FHR Category:: Category II Uterine Activity:: no contractopns Assessment & Plan (1) Variable heart rate decelerations, antepartum: COMMENT: admit STO and give celestone. (2) IUGR (intrauterine growth restriction): COMMENT: plan deliver at 37. 24%ile and 8%ile AC. 2x weekly testing with weekly dopplers. mfm once and bwc once a week. (3) Pregestational diabetes mellitus, modified White class B: COMMENT: on insulin. sees endocrine. 2x weekly testing- once weekly with MFM and weekly with BWC. (4) Two vessel umbilical cord: (5) : QUALIFIERS: Weeks of gestation: 32 weeks Qualified Code(s): Z3A.32 - 32 weeks gestation of COMMENT: NIPT low risk, Carrier testing neg. wants tubal if section (6) Supervision of high risk , antepartum: COMMENT: PRR , BRENTON 11/27/22, girl Ángela PC Odilia, Mohinder(stillborn), Joe (7) History of stillbirth in patient in second trimester, antepartum: COMMENT: Mohinder 25weeks 2018. APL panel ordered. (8) Rh negative, antepartum: COMMENT: Rhogam 28weeks, Rhogam given in ER on 05/29/22 (9) Obesity affecting : COMMENT: 1 TM GCT. (10) History of labor: COMMENT: US Cervical length q2w 16-24w; Progesterone inj 16-36wk-PT is not doing [place] injections delivered first baby at 30 weeks, 2nd baby at 25 (alive at and due to airway compromise) (11) Chronic hypertension affecting : COMMENT: baseline labs. Procardia 60 xl, labetalol 200 bid EKG. (12) Asthma: COMMENT: viral induced, does not have an inhaler PLAN: Plan plan for now is to repeat the BPP and get in touch with MFM as long as no further decelerations. otherwise, likely plan will be for delivery. Will try to get to 2nd dose of celestone. continue with continuous monitoring insulin increased by 10% yesterday. glucose levels stable.
[2022-10-15 08:05] LABS: Bedside Glucose 128 mg/dL (74-106)
--- NOTE | 2022-10-15 09:31 | PN_ITS ---
Progress Note BPP was 8/8 just now there was a subtle decel at 6:48 and currently category 1 tracing after discussion with Dr. Jon at [facility], due to EFW 2 lbs 12 oz, plan to transport to [facility] now.
[2022-10-15 09:33] LABS: Protein, Urine (Random) 31.5 mg/dL (<11.9); Protein:Creat Ratio 235 mg/g CRE (0-200)
[2022-10-15] MEDS: Labetalol 200 MG Tablet PO (09:52)
== END 2022-10-15 10:40 | disposition short-term general hospital (02) ==
LOC: WPOUT 15:20 → WP 15:21
PROVIDERS: Obstetrics & Gynecology; Referring Provider Registered Nurse; Visit Provider Registered Nurse
DX: O36.8330 Maternal care for abnormalities of the fetal heart rate or rhythm, third trimester, not applicable or unspecified (principal); Z79.4 Long term (current) use of insulin; Z3A.32 32 weeks gestation of pregnancy; O09.523 Supervision of elderly multigravida, third trimester; Z86.32 Personal history of gestational diabetes; O99.513 Diseases of the respiratory system complicating pregnancy, third trimester; J45.909 Unspecified asthma, uncomplicated; O36.5930 Maternal care for other known or suspected poor fetal growth, third trimester, not applicable or unspecified; O24.313 Unspecified pre-existing diabetes mellitus in pregnancy, third trimester; O99.213 Obesity complicating pregnancy, third trimester; O10.913 Unspecified pre-existing hypertension complicating pregnancy, third trimester
CPT/HCPCS: 96360; 36415; 59025; 59050; 76815; 76819; 82570; 82962; 84156; 85027; 86850; 86900; 86901; 96372; 99221; J7120; A4216; G0378; J0702

== ENCOUNTER → 2022-10-18 | Outpatient (CLI) | payer BC, SELFPAY ==
--- NOTE | 2022-10-18 14:29 | US_ITS ---
STUDY: OBSTETRICAL ULTRASOUND - BIOPHYSICAL PROFILE REASON FOR EXAM: Female, 37 years old non reactive NST LMP: 02/27/2022. PRIOR ULTRASOUND: Comparison is made with prior study dated 10/15/2022. TECHNIQUE: Transabdominal TECHNICAL QUALITY: Adequate. FINDINGS: There is a single intrauterine fetus. The fetus is in a cephalic presentation. There is demonstrated cardiac activity with a heart rate of 131 bpm. There is a normal amniotic fluid volume. The largest amniotic fluid pocket measures 3.5 cm x 2.3 cm. The amniotic fluid index (ARMAND) is 11.05 cm. The placenta is anterior in location and is not low lying. There are Grade 3 placental changes. Age by LMP: 33 weeks, 2 days. BR[place] by LMP: 12/04/2022. BIOPHYSICAL PROFILE: Breathing Movements (FBM): 2 Gross Body Movements (GBM): 2 Tone (FT): 2 Amniotic Fluid Volume (AFV): 2 TOTAL SCORE: 8 / 8 US/Biophysical Prof W/O Non Stres IMPRESSION: Normal biophysical profile of 88. Electronically Signed: Marcelo Reyes MD at 15:28 EST ,
== END | disposition home or self-care (01) ==
LOC: US 14:28
PROVIDERS: Referring Provider Obstetrics & Gynecology; Visit Provider Obstetrics & Gynecology
DX: O36.8390 Maternal care for abnormalities of the fetal heart rate or rhythm, unspecified trimester, not applicable or unspecified (principal)
CPT/HCPCS: 76819

== ENCOUNTER 2022-10-19 15:40 | Inpatient (IN) | payer BC, SELFPAY ==
[2022-10-19] VITALS (17 sets, daily range): BP systolic 106–152; BP diastolic 56–89; PULSE 58–77; RESP 16–20; TEMP 36.2–36.9; O2SAT 97–100; BMI 39.9
--- NOTE | 2022-10-19 13:55 | US_ITS ---
STUDY: OBSTETRICAL ULTRASOUND - BIOPHYSICAL PROFILE REASON FOR EXAM: Female, 37 years old Non-reactive NST LMP: Unknown. PRIOR ULTRASOUND: None. TECHNIQUE: Transabdominal TECHNICAL QUALITY: Adequate. FINDINGS: There is a single intrauterine fetus. The fetus is in a cephalic presentation. There is demonstrated cardiac activity with a heart rate of 135 bpm. There is a normal amniotic fluid volume. The largest amniotic fluid pocket measures 4.8 cm. The amniotic fluid index (ARMAND) is 10.2 cm. The placenta is anterior in location and is not low lying. There are Grade 3 placental changes. Age by report: 33 weeks, 3 days. BRENTON by report: December 04, 2022. BIOPHYSICAL PROFILE: Breathing Movements (FBM): 2 Gross Body Movements (GBM): 2 Tone (FT): 2 Amniotic Fluid Volume (AFV): 2 TOTAL SCORE: 8 / 8 US/Biophysical Prof W/O Non Stres IMPRESSION: Normal biophysical profile of 8/8. Electronically Signed: Pedro Luis Chandler MD at 15:10 EST ,
--- NOTE | 2022-10-19 15:51 | HP.PCM.OB_ITS ---
HPI - General General Date of Admission: 10/19/22 HPI Narrative MELONY CEDEÑO, is a 37 y/[id number] who presents to L&D for NST for growth restriction, chronic hypertension, 2 vessel cod, and gestational diabetes. This week she has been in and out of the hospitals between [facility] and [place] [facility] for decelerations. Today while on the monitor she has had 3 decelerations. After discussion with the high risk doctor, Dr. Jon in [place], I explained to Melony that it is recommended to go back to [place] for prolonged monitoring and likely delivery. She then became irate and screamed and cried that she was not going to go anywhere except for home because being monitored for so long is costing them hundreds of dollars and she hates doctors and hates hospitals,etc. Dr. Jon was conference into her room for discussion to inform Melony that the baby was not looking well and prolonged monitoring and likely delivery was recommended. Melony then said, I am either going to have this baby immediately or I am going home. Dr. Jon then recommended that we call the [facility]'s transport team and deliver her here in [place]. The BPP from today was 8/8, however based on the tracing showing at times minimal variability and variable decels, the patient's history, and the current comorbidities of this fetus and mother, the decision is made to proceed with section now as soon as the transport team arrives. The patient is also requesting a tubal ligation. Maternal Data Information BRENTON Calculator Estimated Delivery Date Method Current WG Current Estimate 12/04/22 Ultrasound #1 33w 3d Other Estimates 11/27/22 LMP (Certain) 34w 3d [facility] Medical History Asthma High blood pressure History of gestational diabetes Seasonal allergies Home Medications multivitamin no.47-iron fum 27 mg-folate no.1 1 mg-dha 300 mg capsule (PNV-DHA) 1 cap PO DAILY 04/25/22 [History Last Taken 10/19/22] aspirin 81 mg tablet 81 mg PO DAILY 05/27/22 [History Last Taken 10/19/22] insulin NPH isoph U-100 human 100 unit/mL subcutaneous suspension 22 unit subcut 1XD gdm 09/18/22 [History Last Taken 10/18/22] insulin lispro 100 unit/mL subcutaneous pen (Humalog KwikPen (U-100) Insulin) 6 unit subcut TID gdm 09/18/22 [History Last Taken 10/19/22] insulin NPH isoph U-100 human 100 unit/mL subcutaneous suspension 18 unit subcut 1XD 10/14/22 [History Last Taken 10/19/22] labetalol 200 mg tablet 200 mg PO BID bp 10/14/22 [History Last Taken 10/19/22] nifedipine 60 mg tablet,extended release 24 hr (Procardia XL) 60 mg PO DAILY bp 10/14/22 [History Last Taken 10/18/22] Allergy/AdvReac Type Severity Reaction Status Date / Time No Known Allergies Allergy Verified 10/18/22 12:59 Family History Mother Hypertension Grandmother Breast cancer Grandfather Colon cancer Myocardial infarction Surgical History No history of previous surgery Social History adopted: No household members: spouse and children housing: house number of children: 1 current occupational status: employed current occupation: [employer] current occupational exposures/hazards: No pets and animals: Yes ([employer]) pets and animals: cat(s) history of recent travel: No sexually active: Yes Smoking Status: Current every day smoker tobacco type: smokeless tobacco Tobacco: How many years used: 20 quit status: considering quitting counseling given: provider counseling alcohol intake: never substance use type: does not use well-balanced diet: daily or most days caffeine: Yes Type: carbonated beverages Number of servings: 1 eating out: rarely or never during the past year weight has: remained stable what type of physical activity do you participate in: none sergio/congregational: None seatbelt use: always do you feel safe at home: Yes additional social history: -Joe- Works at [employer] Patient works at [employer] History 3 Elective abortions Hx Para 1 Spontaneous abortions Hx # Term Pregnancies Ectopic pregnancies Hx # Pregnancies 2 Multiple births # of living children 1 Past Pregnancies Del. Date Name GA/Weeks Outcome Route Bth Weight Gen Labor Lgth Anesthesia Del Locatn Provider FOB 02/27/17 Serenity 30 live - 2lbs 7oz Female none Maci Diaz 06/06/19 Mohinder 25 Sandhya Diaz Delivery Date: 10/28/16 Last Updated by: Norma Hernández Low amniotic fluid. Started having blood pressure issues at end of . Visit Details OB Flowsheet Initial Weight: Not Recorded Date -?-?-?-?-?-?-?-?-?-?-?-?- EGA Weight BP Urine Prot -?-?-?-?-?-?-?-?-?-?-?-?- Glucose FHR FuHt Pres Dilation -?-?-?-?-?-?-?-?-?-?-?-?- Effaced St Visit Note 05/02/22 -?-?-?-?-?-?-?-?-?-?-?-?- 9w 1d 244 lb 8 oz 154/100 -?-?-?-?-?-?-?-?-?-?-?-?- -?-?-?-?-?-?-?-?-?-?-?-?- JV- CRL not cons istent with LMP. brenton 12/04/21. see problem list 05/17/22 -?-?-?-?-?-?-?-?-?-?-?-?- 11w 2d 217 lb 136/89 Negative -?-?-?-?-?-?-?-?-?-?-?-?- Negative 160 -?-?-?-?-?-?-?-?-?-?-?-?- SM- doing well n o complaints, blood draw next week 05/29/22 -?-?-?-?-?-?-?-?-?-?-?-?- 13w 0d 243 lb 6 oz 139/90 Nega tive -?-?-?-?-?-?-?-?-?-?-?-?- Negative 168 -?-?-?-?-?-?-?-?-?-?-?-?- JV- pt now diabe tic and hypertensive along with her history of loss and ptl, recommend comanagement with MFM. consultation order placed. continue procardia 30xl. was in ER for bleeding and was given rhogam. Unsure if diagnosis of RH incompatability is true at this time. last delivery was at 25 weeks and was a result of abruption and severe pre-e. 06/11/22 -?-?-?-?-?-?-?-?-?-?-?-?- 14w 6d 243 lb 2 oz 140/98 Trac e -?-?-?--?-?-?-?-?-?-?-?-?- 1000 g/dL 160 20 -?-?-?-?-?-?-?-?-?-?-?-?- LC- awaiting end o and MFM consult, milly. procardia increased to 60mg. LC- no further VB, no crampi ng. awaiting endo and MFM consult, milly is under prior authorization. increased BP in office, procardia increased to 60mg qday. lovenox ordered today to start SQ. co-managed with Dr. Marcus 07/10/22 -?-?-?-?-?-?-?-?-?-?-?-?- 19w 0d 247 lb 8 oz 150/84 Nega tive -?-?-?-?-?-?-?-?-?-?-?-?- Negative 155 -?-?-?-?-?-?-?-?-?-?-?-?- JV- bp's still e levated today despite 60 xl procardia. adding 200 labetalol bid as well. pt does not have her bp readings nor does she have her glucose log. re-consulting MFM for co-care to help reinforce the importance of compliance as well and guide us with the high doses of bp meds that are needed. Pt to call us when she gets home with her glucose and bp numbers. message left for Roxana Velez to help start doing home bp monitoring. 07/24/22 -?-?-?-?-?-?-?-?-?-?-?-?- 21w 0d 244 lb 4 oz 139/86 -?-?-?-?-?-?-?-?-?-?-?-?- 150 -?-?-?-?-?-?-?-?-?-?-?-?- JV- bp's better controlled and she is now hooked up with MFM to better monitor glucose levels. had scan on 07/23 and was overall normal. has follow up scan scheduled for echo. q month growths and twice weekly testing after 32 weeks. 09/03/22 -?-?-?-?-?-?-?-?-?-?-?-?- 26w 6d 250 lb 4 oz 130/82 Nega tive -?-?-?-?-?-?-?--?-?-?-?-?- Negative 147 25 -?-?-?-?-?-?-?-?-?-?-?-?- JV- no lof, vagi nal bleeding, or dec fm. normal echo, has follow ups with MFM scheduled. planning for 38 week delivery. 09/18/22 -?-?-?-?-?-?-?-?-?-?-?-?- 29w 0d 254 lb 2 oz 131/80 Nega tive -?-?-?-?-?-?-?-?-?-?-?-?- Negative 138 28 Cephalic -?-?-?-?-?-?-?-?-?-?-?-?- JV- glucose leve ls are within normal limits with Dr. Benitez. bpp's have been 04/08. AC 8t% and getting weekly dopplers along with twice weekly nsts. growth scan is 09/26/22 10/01/22 -?-?-?-?-?-?-?-?-?-?-?-?- 30w 6d 254 lb 135/86 -?-?-?-?-?-?-?-?-?-?-?-?- 147 -?-?-?-?-?-?-?-?-?-?-?-?- JV- no lof, vag inal bleeding, or dec fm. most recent scan shows IUGR <1st% of the HC and AC. bpp yesterday 04/0810/07/22 -?-?-?-?-?-?-?-?-?-?-?-?- 31w 5d 260 lb 139/82 Negative -?-?-?-?-?-?-?-?-?-?-?-?- Negative 140 32 -?-?-?-?-?-?-?-?-?-?-?-?- SM_ no vb lof go od fm no regular ctx reviewed PL and updated 10/14/22 -?-?-?-?-?-?-?-?-?-?-?-?- 32w 5d 259 lb 8 oz 259 lb 8 oz 121/78 Negative -?-?-?-?-?-?-?-?-?-?-?-?- Negative 140 -?-?-?-?-?-?-?-?-?-?-?-?- SM- no vb lof go od fm on nst had variable on nst so sent to l and d for monitoring 10/18/22 -?-?-?-?-?-?-?-?-?-?-?-?- 33w 2d 258 lb 134/83 Negative -?-?-?-?-?-?-?-?-?-?-?-?- Negative 140 -?-?-?-?-?-?-?-?-?-?-?-?- JV- nst not reac tive. pt left [facility] days ago where she was admitted for 3 prolonged decels here. Sending for BPP now. ROS Constitutional Constitutional: Denies change in weight, fatigue, fever(s), headache(s), poor appetite or weakness Eyes Eyes: Denies blurry vision, change in vision, seeing flashes or spots in vision ENT HEENT: Denies dizziness, headache(s), loss taste/smell or sore throat Cardiovascular Cardiovascular: Denies chest pain, dizziness, dyspnea, irregular heart rhythm, leg edema, palpitations, rapid heart rate or vomiting Respiratory/Chest Respiratory/Chest: Denies chest tightness, cough, dyspnea or breast pain Gastrointestinal Gastrointestinal: Denies abdominal pain, anorexia, constipation, cramping, diarrhea, hemorrhoids, vomiting or weight changes Genitourinary Genitourinary: Denies dysuria, flank pain, genital lesions, genital pain, urinary frequency or urinary urgency Musculoskeletal Musculoskeletal: Denies back pain, difficulty walking, joint pain, limited range of motion, muscle cramps or numbness Integumentary Integumentary: Denies lesions or unusual bruising Neurologic Neurologic: Denies abnormal movements, abnormal speech, dizziness, numbness, seizure-like activity or syncope Psychiatric Psychiatric: Denies anxiety, behavioral changes, change in appetite, change in libido, cognitive impairment, confusion, depression, difficulty concentrating, hallucinations or suicidal thoughts Endocrine Endocrinology: Denies excessive sweating, polydipsia or polyuria Hematologic/Lymphatic Hematologic/Lymphatic: Denies easy bleeding, easy bruising or lymphadenopathy Allergic/Immunologic Allergic/Immunologic: Denies itchy eyes, lip swelling, seasonal rhinorrhea, rhinitis, throat swelling, tongue swelling, eczemia, wheezing or asthma Vital Signs Vital Signs Vital Signs: 10/19/22 13:16 10/19/22 13:17 10/19/22 13:17 Temperature Temperature Source Temporal Pulse Rate 77 Blood Pressure 141/82 H BP Systolic 141 BP Diastolic 82 Pulse Ox 10/19/22 13:17 10/19/22 13:16 Temperature 98.5 F Temperature Source Pulse Rate Blood Pressure BP Systolic BP Diastolic Pulse Ox 97 Weight Weight: 255 lb 4.725 oz Body Mass Index (BMI) 39.9 Physical Exam Const alert, oriented x3, no apparent distress and healthy appearing General Appearance: cooperative; Negative for anxious HEENT normocephalic Face and Sinus: normal facial exam Eyes EOMs intact bilaterally and no scleral icterus General Eye: normal appearance of both eyes Neck full ROM and supple Lymph Lymphatic: no lymphadenopathy noted Chest Chest: abnormal inspection of the chest Resp normal respiratory effort Effort and Inspection: able to speak in complete sentences Cardio regular rate GI soft to palpation and non-tender Inspection: gravid Palpation: soft; Negative for tender Back/Spine no CVA tenderness Extremity normal to inspection, full ROM and no clubbing, cyanosis or edema General Extremity: Negative for calf tenderness or edema Skin Lesions: no lesions Rashes: no rashes Psych mental status grossly normal Labs Labs Labs: Blood Type A NEGATIVE Antibody Screen NEGATIVE Hct 36.2 % (37-47) L Hgb 11.9 g/dL (12.0-15.0) L Pap Smear Negative Obstetrics US Syphilis Total Ab Non-reactive Rubella IgG Antibody Reactive (Nonreactive) Hep Bs Antigen Non-Reactive (Nonreactive) Chlamydia DNA ([facility]) Negative (Negative) Neisseria gonorrhoeae DNA ([facility]) Negative (Negative) HIV 1&2 Antibody Non-Reactive (Nonreactive) Glucose 1 Hr 50 gm 188 mg/dL (70-140) H Miscellaneous Test Assessment & Plan (1) Variable heart rate decelerations, antepartum: COMMENT: admit STO and give celestone. (2) IUGR (intrauterine growth restriction): COMMENT: plan deliver at 37. 24%ile and 8%ile AC. 2x weekly testing with weekly dopplers. mfm once and bwc once a week. (3) Pregestational diabetes mellitus, modified White class B: COMMENT: on insulin. sees endocrine. 2x weekly testing- once weekly with MFM and weekly with BWC. (4) Two vessel umbilical cord: (5) : QUALIFIERS: Weeks of gestation: 33 weeks Qualified Code(s): Z3A.33 - 33 weeks gestation of COMMENT: NIPT low risk, Carrier testing neg. wants tubal if section (6) Supervision of high risk , antepartum: COMMENT: PRR , BR[place]ON 11/27/22, girl Ángela NESTOR SerMohinder hartley( shortly after due to abruption), Joe (7) History of stillbirth in patient in second trimester, antepartum: COMMENT: Mohinder 25weeks 2019. APL panel ordered. (8) Rh negative, antepartum: COMMENT: Rhogam 28weeks, Rhogam given in ER on 05/29/22 (9) Obesity affecting : COMMENT: 1 TM GCT. (10) History of labor: COMMENT: US Cervical length q2w 16-24w; Progesterone inj 16-36wk-PT is not doing Iantha injections delivered first baby at 30 weeks, 2nd baby at 25 (alive at and due to airway compromise) (11) Chronic hypertension affecting : COMMENT: baseline labs. Procardia 60 xl, labetalol 200 bid EKG. (12) Asthma: COMMENT: viral induced, does not have an inhaler PLAN: Plan plan for section now as soon as tranport team arrives NAMRATA protcol ordered
--- NOTE | 2022-10-19 16:07 | DCINST_ITS ---
Discharge Instructions Diet Discharge Diet: No restrictions Activity Discharge Activity: May Not Drive (for 2 weeks or while taking narcotic pain medications.), May Shower and May Take a Tub Bath (in 7 days.) May resume sexual activity in: 4-6 weeks Weight Bearing Status: Full weight bearing Lifting Restrictions: 20 pounds Dressing / Incision Call your doctor if your incision/area has: Continuous Slow Oozing, Sudden Increased Bleeding, Increased Pain/ Swelling, Increased Redness and Foul Smelling Discharge Call your doctor if you observe: Fever of 101 or Higher and Using more than 1 pad per hour Suture Line Care: Avoid Pulling/Pushing and Avoid Pinching/Bending Cleanse incision/area with: Soap & Water and Keep Dressing Clean & Dry Follow Up Care Please Follow Up With: Viv Marcus DO When: Call [phone] to make an appointment for an incision check in 1-2 weeks. Test Results: Test results from this visit will be discussed in further detail at your follow- up appointment, if applicable. Discharge Plan Admission Admit Date/Time: 10/19/22 15:40 Primary Reason for Your Visit: section Attending Provider: Viv Marcus Primary Care Provider: Dominique Franco,Ivonne Primary Discharge Orders/Prescriptions Prescriptions: New oxycodone-acetaminophen [Percocet] 5-325 mg tablet 1 tab PO Q4H PRN (Reason: pain) 7 Days Qty: 30 0RF Rx Instructions: 1-2 tabs q 4 hrs as needed for pain naproxen 500 mg tablet 500 mg PO BID PRN (Reason: pain) Qty: 30 0RF Continued PNV-DHA 27 mg iron-1 mg -300 mg capsule 1 cap PO DAILY insulin lispro [Humalog KwikPen Insulin] 100 unit/mL insulin pen 6 unit subcut TID Rx Instructions: before meals insulin NPH isoph U-100 human 100 unit/mL suspension 22 unit subcut 1XD Rx Instructions: at bedtime labetalol 200 mg tablet 200 mg PO BID nifedipine [Procardia XL] 60 mg tablet extended release 24hr 60 mg PO DAILY insulin NPH isoph U-100 human 100 unit/mL Suspension 18 unit SUBCUT 1XD Rx Instructions: in am daily Discontinued aspirin 81 mg Tablet 81 mg PO DAILY Referrals / Follow Up: Care Physician,No Primary [Primary Care Provider] - Disposition Disposition (needs filled in before D/C Order can be placed): Home, Self Care
[2022-10-19] MEDS: Sodium Citrate/Citric Acid 30 ML UDC PO (16:24)
[2022-10-19] MEDS: Acetaminophen 500 MG Tablet 1000 MG PO ×2 (16:24→22:19)
[2022-10-19] MEDS: Lactated Ringers 1,000 ML 999 ML IV (16:24)
[2022-10-19 17:02] LABS: Absolute Lymphocyte Count 2.41 X10^3/uL (0.83-4.51); Absolute Neutrophil Count 11.1 X10^3/uL (2.0-7.7); Basophil# 0.05 X10^3/uL; Basophil% 0.3 % (0-1); Eosinophil# 0.12 X10^3/uL; Eosinophils% 0.8 % (0-5); Hematocrit 37.4 % (37-47); Hemoglobin 12.3 g/dL (12.0-15.0); Lymphocyte # 2.41 X10^3/ul (0.83-4.51); Lymphocyte % 16.5 % (19-41); Mean Corp Hgb Conc 32.9 g/dL (32-36); Mean Corpuscular Volume 91.2 fL (81-99); Mean Platelet Vol. 11.5 fl (6.2-12.0); Monocyte% 6.1 % (0-10); NRBC Flagged by Analyzer 0 % (0-5); Neutrophil # 11.07 X10^3/uL (2.7-7.7); Neutrophil % 75.7 % (47-70); Platelet Count 293 K/mm3 (150-450); RBC Distribution Width SD 42.4 fl (35.1-43.9); White Blood Count 14.6 K/mm3 (4.4-11.0)
[2022-10-19] MEDS: Cefazolin 2 GM in 0.9% Normal Saline 100 ML IV (17:10)
[2022-10-19 17:25] LABS: AST(SGOT) 5 U/L (15-37); Alanine Aminotransfer ALT/SGPT 11 U/L (13-56); Creatinine, Serum 0.57 mg/dL (0.55-1.02); EST Glomerular Filtration Rate 128 mL/min (>60); Est Glom Filt Rate - Afr Amer 154 mL/min (>60); Estimated Creatinine Clearance 133.96 ml/min; Uric Acid 4.9 mg/dL (2.6-6.0)
--- NOTE | 2022-10-19 17:26 | FALS_PTH ---
PATIENT: ABRAHAM CEDEÑO LOC: [facility] U#:[id number] AGE/SX: 37/F ROOM: WP010 RE10/19/[address]: Dr. Viv Marcus DO : 1985 BED: 1 DIS: 10/20/2022 SPEC #: [id number] RECD: 10/19/22 21:37 STATUS: KRISETN ZEESHAN #: [id number] HEIDI: 10/19/22 17:[address]: Viv Marcus DEPT: SURGICAL PATHOLOGY RECD BY: Kavita Pichardo ENTERED: 10/21/22 09:00 SP TYPE: FALL TUBES OTHR DR: No Primary Care Phys Tissues: Fallopian tube Procedures: Surgery Specimen Level II HEADER OPERATION: Tubal ligation PRE-OP DIAGNOSIS: Sterilization TISSUE SUBMITTED: Fallopian tubes, left has suture MICROSCOPIC DIAGNOSIS Right fallopian tube, salpingectomy: Complete cross-section of fallopian tube with no pathologic change. Left fallopian tube, salpingectomy: Complete cross-section of fallopian tube with no pathologic change. AM:jeanna 10/22/2022 MICROSCOPIC DESCRIPTION Slides are reviewed. GROSS DESCRIPTION Received in fixative is one container labeled with the patient's name and designated bilateral fallopian tubes, one has suture. The specimen consists of two fallopian tubes with an average length of 5.0 cm and has an average diameter of 0.7 cm. Both fallopian tubes have normal fimbriated ends. No mass lesions are identified. Ladies' Locker Room Attendant sections are submitted in two cassettes as follows: 1 - fallopian tube with suture, 2 - fallopian tube without suture. / AM:jeanna 10/21/2022 TC:4 CPT: 61829 x2
[2022-10-19 17:35] LABS: Protein:Creat Ratio 246 mg/g CRE (0-200)
--- NOTE | 2022-10-19 18:00 | OP.PCM_ITS ---
Assessment & Plan (1) Status post section: (2) Variable heart rate decelerations, antepartum: COMMENT: admit STO and give celestone. (3) IUGR (intrauterine growth restriction): COMMENT: plan deliver at 37. 24%ile and 8%ile AC. 2x weekly testing with weekly dopplers. mfm once and bwc once a week. (4) Pregestational diabetes mellitus, modified White class B: COMMENT: on insulin. sees endocrine. 2x weekly testing- once weekly with MFM and weekly with BWC. (5) Two vessel umbilical cord: (6) : QUALIFIERS: Weeks of gestation: 33 weeks Qualified Code(s): Z3A.33 - 33 weeks gestation of COMMENT: NIPT low risk, Carrier testing neg. wants tubal if section (7) Supervision of high risk , antepartum: COMMENT: PRR , BR[place]ON 11/27/22, girl Ángela PC Mohinder Hartley( shortly after due to abruption), Joe (8) History of stillbirth in patient in second trimester, antepartum: COMMENT: Mohinder 25weeks 2018. APL panel ordered. (9) Rh negative, antepartum: COMMENT: Rhogam 28weeks, Rhogam given in ER on 05/29/22 (10) Obesity affecting : COMMENT: 1 TM GCT. (11) History of labor: COMMENT: US Cervical length q2w 16-24w; Progesterone inj 16-36wk-PT is not doing Liliam injections delivered first baby at 30 weeks, 2nd baby at 25 (alive at and due to airway compromise) (12) Chronic hypertension affecting : COMMENT: baseline labs. Procardia 60 xl, labetalol 200 bid EKG. (13) Asthma: COMMENT: viral induced, does not have an inhaler Maternal Data Information BRENTON Calculator Estimated Delivery Date Method Current WG Current Estimate 12/04/22 Ultrasound #1 33w 3d Other Estimates 11/27/22 LMP (Certain) 34w 3d Final BRENTON: 12/04/22 Final BRENTON Source: US <20 weeks Gestational age: 33 weeks 3 days [place] Doctor Who Attended Delivery: Nataly Peacock Details Operative Information Date of Procedure: 10/19/22 Pre-Operative Diagnosis: @ 33 weeks 3 days, decelerations, severe IUGR, 2 vessel umbilical cord, history of abruption and loss at 25 weeks, chronic hypertension, Type 2 DM, maternal obesity, desires permanent sterilization Post-Operative Diagnosis: @ 33 weeks 3 days, decelerations, severe IUGR, 2 vessel umbilical cord, history of abruption and loss at 25 weeks, chronic hypertension, Type 2 DM, maternal obesity, desires permanent sterilizat ion Classification: DAIANA Procedure Type: low transverse courtesy car driver #1: Leyda Hodge Type of Anesthesia: Spinal Anesthesiologist: Matthew Carr Antibiotic Given: Ancef 2 grams IV x1 Drain: Diaz to straight drain Estimated Blood Loss: 300cc Findings Description of Procedure: The patient initially presented to L&D for an NST and was found to have 2 decelerations. A bpp was ordered and was 8/8, however based on her history of non-reactive NST and decelerations for the last 6 days, it was recommended by maternal medicine to deliver the baby. She has received 2 doses of celestone earlier in the week. The patient was threatening to leave against medical advice and refused transfer to [place]. Because of this, the transport te am was called from [facility] to be present at the time of delivery. The patient was brought to the operating room where spinal anesthesia was found to be adequate. She was prepped and draped in the normal sterile fashion and was placed in a dorsal supine position with a leftward tilt. Pfannenstiel skin incision was made with a scalpel and carried through to the underlying layers. The fascia was nicked in the midline and extended laterally. The rectus muscles were in the midline. Peritoneum was entered bluntly. The uterus was identified and a bladder blade was inserted into the abdomen. Bladder flap was created off the uterus using Metzenbaum scissors. A transverse incision was made with a scalpel and extended laterally manually. The infant's head was gra sped with the help of my administrative assistant office manager and fundal pressure the infant was delivered through the uterine incision without difficulty. The infant was noted to be crying and moving all extremities. The cord was clamped and cut. The infant was handed off to the awaiting radiological health specialist and transport team for assessment. Placenta was delivered manually without difficulty. The uterus was exteriorized and cleared of all clots and debris. Incision was closed with an 0 Vicryl suture in a running locked fashion. Second layer of 1-0 monocryl suture was used in imbricating manner to create excellent closure and hemostasis. The tubal ligation procedure was performed next. The right tube was grasped with a Reginaldo clamp and the underlying mesosalpinx was cauterized and cut with the ligasure device removing the entire tube and fimbriated end. The same procedure was performed on the opposite side. Both fallopian tubes were passed off for pathology analysis. The peritoneum was closed in a pursestring pattern using a 3-0 Vicryl suture. This muscle was reapproximated with a 3-0 Vicryl. The fascia was closed with a stratafix PDS suture. Subcutaneous tissue layer was closed using a plain gut suture. The skin was closed with a 4-0 Monocryl subcuticular stitch. The skin was also sealed with surgical glue. The patient tolerated the procedure well sponge lap and needle counts were correct at each tissue closure plane and the patient is now being brought to the recovery room in stable condition Presentation: Positive for Vertex Amniotic Membrane Rupture Type: Artificial Amniotic Fluid Description: Clear Placental Delivery Description: Expressed Placenta Disposition: [facility] Specimen(s) Sent to Pathology: placenta and fallopian tubes Cord Vessel Description: 2 Vessels Cord Entanglement: None Cord Gases: ABG and VBG Infant A Gender: Female (1 minute): 8 (5 minute): 9 Delayed Cord Clamping: No Complications Risks of Surgery Discussed w/Patient: Bleeding, Anesthesia Risks, Infection, Need for Future C-Sections, Permanency, Failure Rate of 1 to 2%, Injury to surrounding structure(s) including bowel and bladder and Availability of other non-permanent control options Complications: none Multi Select Codes Urinary/Genital Urinary/Genital CPT Codes: 13446 Delivery global pkg and Other Procedure See Report (bilateral salpingectomy )
[2022-10-19] MEDS: Oxytocin 15 Units/NS 250ml 15 UNITS/250 ML IV.SOLN 83 UNITS IV (18:15)
--- NOTE | 2022-10-19 19:01 | NURSING ---
blood sugar readings can be taken from pt arm monitor per Dr Allen; POC BG is 105 at 1900 per pt monitor
[2022-10-19] MEDS: Ketorolac 30 MG/ML Syringe IV (19:05)
--- NOTE | 2022-10-19 20:59 | NURSING ---
Infant blood type A- per previous RN report, resulted prior to transport to [facility]. No rhogam workup needed.
[2022-10-19] MEDS: Lactated Ringers 1,000 ML 100 ML IV (21:20)
--- NOTE | 2022-10-19 22:14 | NURSING ---
Blood sugar 115 from pt monitor.
[2022-10-19] MEDS: NIFEdipine 60 MG Tablet PO (22:18)
[2022-10-19] MEDS: Insulin NPH Human 100 UNITS/ML PEN 11 UNITS SC (22:20)
[2022-10-20] VITALS (13 sets, daily range): BP systolic 117–135; BP diastolic 67–82; PULSE 68–97; RESP 16–20; TEMP 36.1–37.1; O2SAT 98–100
[2022-10-20] MEDS: Ketorolac 30 MG/ML Syringe IV ×3 (00:41→14:40)
--- NOTE | 2022-10-20 02:24 | NURSING ---
Small quarter sized clot noted with fundal assessment, bleeding amount small.
[2022-10-20] MEDS: Acetaminophen 500 MG Tablet 1000 MG PO ×3 (04:31→16:27)
--- NOTE | 2022-10-20 06:11 | NURSING ---
BG 95 at 0600 per pt report, reading from blood glucose monitor in arm.
[2022-10-20 06:12] LABS: Hematocrit 32.8 % (37-47); Mean Corp Hgb Conc 33.5 g/dL (32-36); Mean Corpuscular Volume 92.4 fL (81-99); Mean Platelet Vol. 11.4 fl (6.2-12.0); Platelet Count 277 K/mm3 (150-450); RBC Distribution Width CV 13.2 % (11.6-14.6); RBC Distribution Width SD 44.4 fl (35.1-43.9); Red Blood Count 3.55 M/mm3 (4.2-5.4); White Blood Count 14.3 K/mm3 (4.4-11.0)
[2022-10-20] MEDS: Enoxaparin 40 MG/0.4 ML Syringe SC (06:56)
[2022-10-20] MEDS: 0.9% Saline Lock 10 ML Syringe IV ×2 (06:57→14:41)
--- NOTE | 2022-10-20 08:45 | NURSING ---
Per pt's monitor, blood glucose 94 before breakfast and administering insulin.
[2022-10-20] MEDS: Insulin Lispro 100 UNIT/ML INSULN.PEN 6 UNIT SC ×2 (08:49→14:41)
[2022-10-20] MEDS: Insulin NPH Human 100 UNITS/ML PEN 6 UNITS SC (08:50)
[2022-10-20] MEDS: Senna/Docusate Sodium 1 Tablet PO (10:56)
--- NOTE | 2022-10-20 10:56 | PCM.PN.OB ---
Subjective Subjective Patient is sitting up on the couch comfortably without complaints. She states that she slept on an off during the night. Lochia is mild and pain is minimal. Her baby in [place] is doing well and not requiring o2. She will eat later today. Dad is on his way to see her and she wants to be discharged later today to see her. fasting blood glucose is 95 this am and 135 after meal. She is currently on 11 nph at night and 6 nph am, 6 log with meals. Objective Data Objective Data Vital Signs: Vital Signs Temp Pulse Resp BP Pulse Ox O2 Del Method 97.6 F L 76 18 126/77 H 98 Room Air 10/20/22 08:00 10/20/22 08:00 10/20/22 08:00 10/20/22 08:00 10/20/22 08:00 10/20/22 08:00 Oxygen Delivery Method Room Air Weight: 255 lb 4.725 oz Body Mass Index (BMI) 39.9 Intake & Output: Intake and Output for Last 24 Hours 10/18/22 10/19/22 10/20/22 23:59 23:59 23:59 Intake Total 1460 / 1460 2093.33 / 2093.33 Output Total 700 / 700 550 / 550 Balance 760 / 760 1543.33 / 1543.33 Lab / Micro Data Result Diagrams: 10/20/22 06:00 10/19/22 16:50 Labs: Laboratory Results - last 24 hr 10/19/22 16:50: WBC 14.6 H, RBC 4.10 L, Hgb 12.3, Hct 37.4, MCV 91.2, MCH 30.0, MCHC 32.9, RDW Std Deviation 42.4, RDW Coeff of Adriana 13.0, Plt Count 293, MPV 11.5, Immature Gran % (Auto) 0.600, Neut % (Auto) 75.7 H, Lymph % (Auto) 16.5 L, Gilchrist % (Auto) 6.1, Eos % (Auto) 0.8, Baso % (Auto) 0.3, Absolute Neuts (auto) 11.1 H, Absolute Lymphs (auto) 2.41, Nucleated RBC % 0 10/19/22 16:50: Blood Type A NEGATIVE, Antibody Screen TNP 10/19/22 16:50: Creatinine 0.57, Estim Creat Clear Calc 133.96, Est GFR (MDRD) Af Amer 154, Est GFR (MDRD) Non-Af 128, Uric Acid 4.9, AST 5 L, ALT 11 L 10/19/22 16:50: Antibody Screen NEGATIVE 10/19/22 17:18: U Random Total Protein 11.0, Urine Creatinine 44.70, Protein/Creatinin Ratio 246 H 10/20/22 06:00: WBC 14.3 H, RBC 3.55 L, Hgb 11.0 L, Hct 32.8 L, MCV 92.4, MCH 31.0, MCHC 33.5, RDW Std Deviation 44.4 H, RDW Coeff of Adriana 13.2, Plt Count 277, MPV 11.4 Radiography Diagnostic Testing: Radiology Impression Biophysical Profile Ultrasound 10/19/22 13:55 IMPRESSION: Normal biophysical profile of 04/08. Electronically Signed: Pedro Luis Chandler MD at 15:10 EST Reading Location ID and State: [facility] / ID , Service support , ROS Constitutional Constitutional: Reports systems reviewed and no addt'l complaints, except as documented Cardiovascular Cardiovascular: Denies chest pain, dizziness, dyspnea or irregular heart rhythm Respiratory/Chest Respiratory/Chest: Denies cough, pain on inspiration or shortness of breath at rest Gastrointestinal Gastrointestinal: Denies abdominal pain, nausea or vomiting Genitourinary Genitourinary: Denies burning urination Musculoskeletal Musculoskeletal: Denies muscle cramps, muscle spasms or muscle weakness Neurologic Neurologic: Denies confusion, dizziness, headache(s) or lack of coordination Psychiatric Psychiatric: Denies anxiety, behavioral changes or depression Physical Exam HEENT normocephalic Resp normal respiratory effort and normal air movement GI soft to palpation, non-tender and non-distended Rectal Exam: other Other Details: Incision is clean, dry, and intact no CVA tenderness Extremity normal to inspection General Extremity: edema bilateral (trace ) Assessment & Plan (1) Status post section: (2) Variable heart rate decelerations, antepartum: COMMENT: admit STO and give celestone. (3) IUGR (intrauterine growth restriction): COMMENT: plan deliver at 37. 24%ile and 8%ile AC. 2x weekly testing with weekly dopplers. mfm once and bwc once a week. (4) Pregestational diabetes mellitus, modified White class B: COMMENT: on insulin. sees endocrine. 2x weekly testing- once weekly with MFM and weekly with BWC. (5) Two vessel umbilical cord: (6) : QUALIFIERS: Weeks of gestation: 33 weeks Qualified Code(s): Z3A.33 - 33 weeks gestation of COMMENT: NIPT low risk, Carrier testing neg. wants tubal if section (7) Supervision of high risk , antepartum: COMMENT: PRR , [place] 11/27/22, girl Saraha PC Mohinder Hartley( shortly after due to abruption), Joe (8) History of stillbirth in patient in second trimester, antepartum: COMMENT: Mohinder weeks 2018. APL panel ordered. (9) Rh negative, antepartum: COMMENT: Rhogam 28weeks, Rhogam given in ER on 05/29/22 (10) Obesity affecting : COMMENT: 1 TM GCT. (11) History of labor: COMMENT: US Cervical length q2w 16-24w; Progesterone inj 16-36wk-PT is not doing Liliam injections delivered first baby at 30 weeks, 2nd baby at 25 (alive at and due to airway compromise) (12) Chronic hypertension affecting : COMMENT: baseline labs. Procardia 60 xl, labetalol 200 bid EKG. (13) Asthma: COMMENT: viral induced, does not have an inhaler PLAN: Plan s/p LTCS PPD # 1 1. routine post care 2. breast feeding- support given 3. rh positive 4. rubella immune 5. htn- stable, stop labetalol and continue procardia at night 6. DM- NPH halved from dose, continue 6 R with meals and follow up with Dr. Benitez 7. 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 She is currently calm and happy, makes appropriate eye contact, agreeable to all interventions and advice. plan is for her to call us if she develops feelings of depression or has further concerns. is very supportive and will call us also with any concerns 8. ok to discharge so that she may see her baby tonight or whenever she wants to in the am tomorrow. Will dc later this afternoon.
--- NOTE | 2022-10-20 11:09 | NURSING ---
Dr. Marcus verbalized that pt is okay to be discharged today without social work seeing her.
[2022-10-20] MEDS: Prenatal Vits Tablet 1 TABLET PO (14:41)
--- NOTE | 2022-10-20 16:34 | NURSING ---
This RN discussed with Dr. Marcus and pt that pt would take 11 units insulin NPH at bedtime, 6 units insulin NPH at breakfast, and 6 units Insulin Lispro before each meal. Also discussed that pt would continue taking Procardia as prescribed and discontinue Labetalol. Educated pt on these changes and wrote them on her discharge papers.
[2022-10-22 13:28] LABS: Pathology Specimen OB SEE PATHOLOGY REPORT
== END 2022-10-20 17:23 | disposition home or self-care (01) | DRG 783 ==
LOC: WPOUT 15:49 → WP 15:49
PROVIDERS: Admitting Provider Obstetrics & Gynecology; Visit Provider Obstetrics & Gynecology
DX: O76 Abnormality in fetal heart rate and rhythm complicating labor and delivery (principal); O24.12 Pre-existing type 2 diabetes mellitus, in childbirth; O10.02 Pre-existing essential hypertension complicating childbirth; Z79.4 Long term (current) use of insulin; F17.220 Nicotine dependence, chewing tobacco, uncomplicated; J45.909 Unspecified asthma, uncomplicated; Z30.2 Encounter for sterilization; O99.214 Obesity complicating childbirth; E66.9 Obesity, unspecified; Z3A.33 33 weeks gestation of pregnancy; O99.334 Smoking (tobacco) complicating childbirth; O99.52 Diseases of the respiratory system complicating childbirth; O36.5930 Maternal care for other known or suspected poor fetal growth, third trimester, not applicable or unspecified; Z37.0 Single live birth; Z79.82 Long term (current) use of aspirin
CPT/HCPCS: 59050; 76819; 82565; 82570; 84156; 84450; 84460; 84550; 85025; 85027; 86850; 86900; 86901; 88302; 99221; J7120; A4216; G0378

== ENCOUNTER → 2022-11-04 | Outpatient (CLI) | payer BC, SELFPAY ==
[2022-11-04 13:54] LABS: Protein, Urine (Random) 7.8 mg/dL (<11.9); Protein:Creat Ratio 187 mg/g CRE (0-200)
== END | disposition home or self-care (01) ==
LOC: LABSPEC 12:20
PROVIDERS: Referring Provider Nurse Practitioner Women's Health; Visit Provider Nurse Practitioner Women's Health
DX: I10 Essential (primary) hypertension (principal)
CPT/HCPCS: 82570; 84156